=== PATIENT | female | born 1945 | race Caucasian/White ===

== ENCOUNTER → 2019-04-04 | Outpatient (CLI) | payer OTHER ==
[~2019-04-04] MED LIST: ALLEGRA ALLERGY60 MG PO; AMLO5 PO; ASCO500 PO; ASCORBIC ACID SYRUP PO; ASPI325 PO; Aranesp60 MCG/11 INJ; BUME2 PO; CALACE667G PO; CALC.25 PO; CALCA500CH PO; CLON.2 PO; CODACE60 PO; Calcium Acetat667 MG PO; FERR325 PO; FISH1000 PO; FURO80 PO; HYDR1TAB94 PO; HYOS.125 SL; INSLI100I SC; INSULANI; INSULANPEN SC; Isosorbide Mono30 MG PO; LEVFLO250 PO; LEVSOD50 PO; LEVSOD75 PO; LOSA25 PO; LOVA40; LOVA40 PO; Lantus100 UNIT/1 SC; Lipitor20 MG PO; METF500; METO100ER PO; METO50ER PO; MULVITB PO; NOVOLOG FL100 UNIT/1 SC; OXYACE5T PO; PANT40 PO; PARO10; PAXIL40 MG PO; PIOG15; POTA10T PO; POTCHL10ER PO; PSYL5.85P PO; SEVEC800 PO; SODBIC650 PO; Vitamin D2000 UNIT PO
[2019-04-04 14:39] LABS: Albumin, Blood 3.6 g/dL (3.4-5.0); Albumin/Globulin Ratio 1.1 (0.8-1.8); Bilirubin, Direct 0.1 mg/dL (0.0-0.3); Bilirubin, Indirect 0.4 mg/dL (0.1-0.7); Bilirubin, Total 0.5 mg/dL (0.1-1.0); Globulin, Blood 3.2 g/dL (2.2-4.0); Total Protein, Blood 6.8 g/dL (6.4-8.2)
== END | disposition home or self-care (01) ==
LOC: LAB SHORT 13:59 → LAB 13:59
PROVIDERS: Internal Medicine
DX: R10.9 Unspecified abdominal pain (principal)
CPT/HCPCS: 80076

== ENCOUNTER → 2019-04-11 | Outpatient (CLI) | payer OTHER ==
[2019-04-11 13:31] LABS: Albumin, Blood 3.5 g/dL (3.4-5.0); Albumin/Globulin Ratio 1.1 (0.8-1.8); Bilirubin, Direct 0.1 mg/dL (0.0-0.3); Bilirubin, Indirect 0.4 mg/dL (0.1-0.7); Bilirubin, Total 0.5 mg/dL (0.1-1.0); Globulin, Blood 3.3 g/dL (2.2-4.0); Total Protein, Blood 6.8 g/dL (6.4-8.2)
== END | disposition home or self-care (01) ==
LOC: LAB SHORT 12:13 → LAB 12:13
PROVIDERS: Internal Medicine
DX: R10.9 Unspecified abdominal pain (principal)
CPT/HCPCS: 80076

== ENCOUNTER 2019-08-04 15:13 | Observation (INO) | payer OTHER ==
[~2019-08-04] VITALS: Ht 167.6 cm; Wt 70.5 kg
[~2019-08-04 15:13] MED LIST changes: -Calcium Acetat667 MG PO; -METO100ER PO; -MULVITB PO; -NOVOLOG FL100 UNIT/1 SC
[2019-08-04 15:50] LABS: Chloride (POC) 97 mmol/L (98-108); Creatinine (POC) 4.4 mg/dL (0.6-1.0); Glucose (ISTAT POC) 312 mg/dL (70-99); Hemoglobin (POC) 12.2 g/dL (12.0-16.0); Potassium (POC) 3.9 mmol/L (3.5-5.5); Sodium (POC) 136 mmol/L (135-148); Total CO2 (POC) 28 mmol/L (21-32)
[2019-08-04 16:05] LABS: BASOPHILS ABSOLUTE AUTO 0.07 K/mm3 (0.00-0.23); BASOPHILS PERCENT AUTO 1 % (0-2); EOSINOPHILS ABSOLUTE AUTO 0.14 K/mm3 (0.00-0.68); EOSINOPHILS PERCENT AUTO 1 % (0-6); Hematocrit 34.8 % (33.0-51.0); Hemoglobin 10.8 g/dL (11.5-16.0); IMMATURE GRAN ABSOLUTE AUTO 0.04 K/mm3 (0.00-0.10); IMMATURE GRAN PERCENT AUTO 0 % (0-1); LYMPHOCYTES ABSOLUTE AUTO 0.82 K/mm3 (0.84-5.20); LYMPHOCYTES PERCENT AUTO 8 % (21-46); MONOCYTES ABSOLUTE AUTO 0.51 K/mm3 (0.16-1.47); MONOCYTES PERCENT AUTO 5 % (4-13); Mean Corpuscular HGB 27.8 pg (26.0-34.0); Mean Corpuscular Volume 90 fL (80-100); NEUTROPHILS ABSOLUTE AUTO 8.37 K/mm3 (1.96-9.15); NEUTROPHILS PERCENT AUTO 84 % (41-73); Platelet Count 221 K/mm3 (150-400); RDW Coefficient Variation 16.2 % (11.7-14.2); RDW Standard Deviation 51.9 fL (35.1-46.3); Red Blood Cell Count 3.88 M/mm3 (3.80-5.20); White Blood Cell Count 9.95 K/mm3 (4.00-11.30)
[2019-08-04 16:28] LABS: Albumin, Blood 3.9 g/dL (3.4-5.0); Albumin/Globulin Ratio 1.1 (0.8-1.8); Bilirubin, Total 0.7 mg/dL (0.1-1.0); Bun/Creatinine Ratio 8.2 (12.0-20.0); Calcium, Blood 9.6 mg/dL (8.5-10.1); Globulin, Blood 3.6 g/dL (2.2-4.0); Potassium, Blood 3.8 mmol/L (3.5-5.5); Total Protein, Blood 7.5 g/dL (6.4-8.2)
[2019-08-04 16:29] LABS: International Normalized Ratio 1.01; Prothrombin Time Results 10.7 Sec (9.7-11.5)
[2019-08-04 16:46] LABS: Troponin I <0.015 ng/mL (0.000-0.040)
[2019-08-04] MEDS ORDERED: MULVITB PO (17:16)
[2019-08-04] MEDS ORDERED: NOVOLOG FL100 UNIT/1 SC (17:17)
[2019-08-04] MEDS ORDERED: METO100ER PO (17:17)
[2019-08-04] MEDS ORDERED: Calcium Acetat667 MG PO (17:19)
[2019-08-04] MEDS ORDERED: LOSA25 PO (17:20)
[2019-08-05 04:17] LABS: Bun/Creatinine Ratio 8.6 (12.0-20.0); Calcium, Blood 8.9 mg/dL (8.5-10.1); Creatinine, Blood 4.74 mg/dL (0.40-1.00); Potassium, Blood 3.9 mmol/L (3.5-5.5)
--- NOTE | 2019-08-05 07:59 | NUR ---
SHIFT SUMMARY ASSUMED CARE OF PT AT AROUND 2130 HRS PT ARRIVED VIA [facility], REPORT FROM ASSEMBLER GARMENT FORM YUNI. PT TRANSFERRED TO PCU BED BY SLIDE SHEET W/ NO ISSUES. PT OBSERVED TO BE MILDLY LETHERGIC WITH VARIABLE CONFUSED SPEECH, YET ALERT AND AWARE TO SELF, FAMILY, PLACE, AND TIME. PT IS ACCOMPANIED BY SON AND FAMILY FRIEND WHO SHARE POA; BOTH VISITORS AIDED IN RECONCILING PT'S MEDICATIONS AND HISTORY. PT ARRIVED FROM ER W/ BLOOD GLUCOSE OF 318; OBTAINED ONE-TIME ORDER FOR INSULIN 5 UNITS, PT IS OTHERWISE REGULARLY ORDERED CBG CHECKS AND INSULIN COVERAGE BEFORE MEALS. PT AND FAMILY ORIENTED TO ROOM AND UNIT. PT MEDICATED PER MD ORDER AND UNIT PROTOCOL, INCLUDING TYLENOL FOR HEADACHE AT ARRIVAL WHICH RESOLVED TO "NO PAIN" THE NIGHT PROGRESSED. PT WAS MILDLY LETHARGIC T/O SHIFT BUT ROUSABLE TO EVERY INTERVENTION. PT ARRIVED W O2 @ 2L VIA NC, BUT AROUND 2230 WAS NOTED TO HAVE SATURATION AT 100% AT WHICH POINT 02 WAS REMOVED. AROUND MIDNIGHT PT WAS NOTED TO HAVE O2 SATS BELOW 90, AFTER WHICH NASAL CANNULA REPLACED AND RESOLVED TO 95%. AT AROUND 0500 O2 WAS TITRATED TO ZERO W/ RESULTANT SATS ABOVE 93%. GAVE CARE AND REPORT TO ONCOMING SHIFT AT AROUND 0700 WITH PT'S BED LOCKED & LOW, CALL LIGHT W/IN REACH, AND NO PT ISSUES.
--- NOTE | 2019-08-05 08:00 | NUR ---
INITIAL ASSESMENT PT ALERT AND ORIENT TIMES FOUR AND VERY PLEASENT. PT VISION AND HEARING IMPAIRED,BUT WILL TRACK YOUR VOICE AND ORIENTED TO ROOM AND BREAKFAST TRAY. PAIN AT THIS TIME AND FOLLOWS ALL COMMANDS. RA WITH SATS WNL AND NO S/S OF RESP DISTRESS OR SOB WITH CLEAR AND DIM LUNG SOUNDS BILAT AND STRONG COUGH WITH NO SPUTUM PRODUCTION. TOLERATING DIET WITH INSULIN PER SLIDING SCALE AND NO C/O N/V WITH ABD SOFT ROUNDED AND NON TENDER WITH BT T/O SKIN INTACT. WITH AV FISTULA POSITIVE FOR BRUIT AND THRIL AND EXTEM WARM WILL CONT TO MONITOR
--- NOTE | 2019-08-05 12:39 | NUR ---
PT UPDATE PT RETURNED FROM HD AND TOLERATED WELL. WILL GIVE AM BP RX.
--- NOTE | 2019-08-05 18:13 | NUR ---
PT DISCHARGE PT DISCHARGE EDUCATION COMPLETE AND ALL HOME MEDS AND BELONGINGS WITH PATIENT. PT HOME WITH SON
== END 2019-08-05 17:56 | disposition home or self-care (01) ==
LOC: ER 15:13 → MEDS 15:14 → ER 15:14 → PCU 15:14
PROVIDERS: Emergency Medicine; Nurse Practitioner Acute Care; ADMIT Internal Medicine
DX: I16.1 Hypertensive emergency (principal); I67.4 Hypertensive encephalopathy; I13.11 Hypertensive heart and chronic kidney disease without heart failure, with stage 5 chronic kidney disease, or end stage renal disease; E11.22 Type 2 diabetes mellitus with diabetic chronic kidney disease; N18.6 End stage renal disease; D63.1 Anemia in chronic kidney disease; I25.10 Atherosclerotic heart disease of native coronary artery without angina pectoris; R01.1 Cardiac murmur, unspecified; E78.5 Hyperlipidemia, unspecified; E03.9 Hypothyroidism, unspecified; N25.81 Secondary hyperparathyroidism of renal origin; D50.9 Iron deficiency anemia, unspecified; I69.398 Other sequelae of cerebral infarction; H91.8X1 Other specified hearing loss, right ear; E11.319 Type 2 diabetes mellitus with unspecified diabetic retinopathy without macular edema; H54.8 Legal blindness, as defined in USA; Z99.2 Dependence on renal dialysis; Z79.4 Long term (current) use of insulin; Z79.899 Other long term (current) drug therapy; Z91.048 Other nonmedicinal substance allergy status; Z88.2 Allergy status to sulfonamides
CPT/HCPCS: 36415; 70450; 70551; 71046; 80047; 80048; 80053; 82947; 83690; 84484; 85014; 85025; 85610; 93005; 93010; 93306; 93880; 96374; 96375; 96376; 99285-25; A9270; G0257; G0378; J2405; J2765

== ENCOUNTER 2020-09-17 01:11 | Inpatient (IN) | payer OTHER ==
[~2020-09-17] VITALS: Ht 160 cm; Wt 65.1 kg
[~2020-09-17 01:11] MED LIST changes: +CINA30 PO; +CLOP75 PO; +Calcium Acetat667 MG PO; +HYDR10 PO; +ISODIN10 PO; +METO100ER PO; +MULVITB PO; +NOVOLOG FL100 UNIT/1 SC; +TOUJEO SOL300 UNIT/2 SC
[2020-09-17 01:37] LABS: BASOPHILS ABSOLUTE AUTO 0.05 K/mm3 (0.00-0.23); BASOPHILS PERCENT AUTO 0 % (0-2); EOSINOPHILS ABSOLUTE AUTO 0.09 K/mm3 (0.00-0.68); EOSINOPHILS PERCENT AUTO 1 % (0-6); Hematocrit 25.6 % (33.0-51.0); Hemoglobin 7.7 g/dL (11.5-16.0); IMMATURE GRAN ABSOLUTE AUTO 0.08 K/mm3 (0.00-0.10); IMMATURE GRAN PERCENT AUTO 1 % (0-1); LYMPHOCYTES ABSOLUTE AUTO 0.63 K/mm3 (0.84-5.20); LYMPHOCYTES PERCENT AUTO 5 % (21-46); MONOCYTES ABSOLUTE AUTO 0.98 K/mm3 (0.16-1.47); MONOCYTES PERCENT AUTO 8 % (4-13); Mean Corpuscular HGB 28.2 pg (26.0-34.0); Mean Corpuscular HGB Conc 30.1 g/dL (31.5-36.5); Mean Corpuscular Volume 94 fL (80-100); Mean Platelet Volume 10.8 fL (9.1-12.4); NEUTROPHILS ABSOLUTE AUTO 10.66 K/mm3 (1.96-9.15); NEUTROPHILS PERCENT AUTO 86 % (41-73); Platelet Count 202 K/mm3 (150-400); RDW Coefficient Variation 14.8 % (11.7-14.2); RDW Standard Deviation 50.6 fL (35.1-46.3); Red Blood Cell Count 2.73 M/mm3 (3.80-5.20); White Blood Cell Count 12.49 K/mm3 (4.00-11.30)
[2020-09-17 02:16] LABS: Alanine Aminotransfer (ALT/SGP <6 U/L (12-78); Albumin, Blood 3.3 g/dL (3.4-5.0); Albumin/Globulin Ratio 0.7 (0.8-1.8); Alk Phos 72 U/L (50-136); Anion Gap 11 mmol/L (6-16); Aspartate Aminotrans (AST/SGOT 25 U/L (12-37); Bilirubin, Total 0.5 mg/dL (0.1-1.0); Blood Urea Nitrogen 67 mg/dL (8-24); Bun/Creatinine Ratio 9.2 (12.0-20.0); CO2, Blood 25 mmol/L (21-32); Calcium, Blood 9.7 mg/dL (8.5-10.1); Chloride, Blood 98 mmol/L (98-108); Creatinine, Blood 7.25 mg/dL (0.40-1.00); Globulin, Blood 4.5 g/dL (2.2-4.0); Glomerular Filtration Rate 6 (60-); Glucose, Blood 268 mg/dL (70-99); Potassium, Blood 4.1 mmol/L (3.5-5.5); Sodium, Blood 134 mmol/L (136-145); Total Protein, Blood 7.8 g/dL (6.4-8.2)
[2020-09-17 03:15] LABS: International Normalized Ratio 1.07; Prothrombin Time Results 11.4 Sec (9.7-11.5)
--- NOTE | 2020-09-17 05:58 | NUR ---
ADMIT AND END OF SHIFT SUMMARY PT TO UNIT FROM ED. HEPARIN GTT INFUSING. AXO. ON 2LNC, SPO2>96%. LUNGS CLEAR T/O. PT IN SR. VSS. ADMISSION COMPLETE EXCEPT FOR MED LIST, TO BE COMPLETED WITH SOMN WHEN HE ARRIVES. COVID SWAB OBTAINED, AWAITING RESULTS. MEDS GIVEN PER EMAR. PT UPDATED TO ROOM. PT TO HAVE ECHO AND VENOUS DUPLEX TODAY. PT HAS DENIED CP/PRESSURE THIS SHIFT. STATES BEING COMFORTABLE INROOM. WILL CONTINUE TO MONITOR UNTIL SHIFT CHANGE.
[2020-09-17 06:04] LABS: Influenza A, PCR Negative (NEGATIVE); Influenza B, PCR Negative (NEGATIVE); Resp Syncytial Virus, PCR Negative (NEGATIVE); SARS-Cov-2 (COVID-19) PCR, MMC Negative (NEGATIVE)
--- NOTE | 2020-09-17 07:28 | NUR ---
ASSUMED CARE: PT RESTING IN BED, NPO, DENIES CP. AWAITING CARDIOLOGY CONSULT. NOTED THAT NEPHROLOGY WAS ORDERED. PT STATES SHE WOULD PREFER HER OWN RIPRAP MAN WHICH IS DR RAMIREZ. LIST EDITED AND DR RAMIREZ CONTACTED. NO ACUTE NEEDS OR CONCERNS AT THIS TIME.
--- NOTE | 2020-09-17 08:02 | NUR ---
COMPUTER VIDEO GAME DESIGNER WAS AT BEDSIDE PREFORMING VENOUS DUPLEX ON PT'S UPPER EXTREMITY. TECH REPORTS PT IS POSITIVE FOR DVT IN THE JUGULAR, SUBCLAVIAN, AXILLARY, BRACHIAL AND BASILIC. CALL TO DR GONZALEZ TO MAKE HIM AWARE. PT IS ALREADY ON HEPARIN GTT.
--- NOTE | 2020-09-17 09:20 | NUR ---
ECHO AT BEDSIDE AT THIS TIME.
--- NOTE | 2020-09-17 10:00 | NUR ---
PT TAKEN TO DIALYSIS
[2020-09-17 10:32] LABS: BASOPHILS ABSOLUTE AUTO 0.05 K/mm3 (0.00-0.23); BASOPHILS PERCENT AUTO 0 % (0-2); EOSINOPHILS ABSOLUTE AUTO 0.05 K/mm3 (0.00-0.68); EOSINOPHILS PERCENT AUTO 0 % (0-6); Hematocrit 23.1 % (33.0-51.0); IMMATURE GRAN ABSOLUTE AUTO 0.08 K/mm3 (0.00-0.10); IMMATURE GRAN PERCENT AUTO 1 % (0-1); LYMPHOCYTES ABSOLUTE AUTO 0.63 K/mm3 (0.84-5.20); LYMPHOCYTES PERCENT AUTO 6 % (21-46); MONOCYTES ABSOLUTE AUTO 0.75 K/mm3 (0.16-1.47); MONOCYTES PERCENT AUTO 7 % (4-13); Mean Corpuscular HGB 28.7 pg (26.0-34.0); Mean Corpuscular HGB Conc 30.3 g/dL (31.5-36.5); Mean Corpuscular Volume 95 fL (80-100); Mean Platelet Volume 11.1 fL (9.1-12.4); NEUTROPHILS PERCENT AUTO 87 % (41-73); Platelet Count 194 K/mm3 (150-400); RDW Coefficient Variation 14.6 % (11.7-14.2); RDW Standard Deviation 50.3 fL (35.1-46.3); Red Blood Cell Count 2.44 M/mm3 (3.80-5.20); White Blood Cell Count 11.46 K/mm3 (4.00-11.30)
--- NOTE | 2020-09-17 11:30 | NUR ---
DIALYSIS NURSE STATES THAT DR RAMIREZ WISHES FOR UNIT OF BLOOD FOR PT'S ANEMIA. LAB CALLED AFTER TYPE AND SCREEN TO STATE THAT PT HAS SEVERAL ANTIBODIES THAT WOULD REQUIRE SPECIAL UNIT OF BLOOD TO BE SENT FROM [facility]. DIALYSIS NURSE MADE AWARE AND STATES HE WOULD TELL DR RAMIREZ.
[2020-09-17 11:38] LABS: Alanine Aminotransfer (ALT/SGP <6 U/L (12-78); Albumin/Globulin Ratio 0.7 (0.8-1.8); Alk Phos 64 U/L (50-136); Anion Gap 11 mmol/L (6-16); Aspartate Aminotrans (AST/SGOT 24 U/L (12-37); Bilirubin, Total 0.6 mg/dL (0.1-1.0); Blood Urea Nitrogen 70 mg/dL (8-24); Bun/Creatinine Ratio 9.2 (12.0-20.0); CO2, Blood 25 mmol/L (21-32); Calcium, Blood 9.7 mg/dL (8.5-10.1); Chloride, Blood 98 mmol/L (98-108); Creatinine, Blood 7.57 mg/dL (0.40-1.00); Globulin, Blood 4.1 g/dL (2.2-4.0); Glomerular Filtration Rate 6 (60-); Glucose, Blood 193 mg/dL (70-99); Potassium, Blood 4.4 mmol/L (3.5-5.5); Sodium, Blood 134 mmol/L (136-145); Total Protein, Blood 7.1 g/dL (6.4-8.2)
[2020-09-17 11:40] LABS: Troponin I 6.03 ng/mL (0.000-0.040)
--- NOTE | 2020-09-17 11:46 | NUR ---
CALL TO DR TREADWELL FOR PT'S INCREASED TROPONIN. STATES THAT HE IS NOT PLANNING TO CATH PT UNTIL ANEMIA IS RESOLVED. MADE HIM AWARE THAT UNIT OF BLOOD NEEDS TO BE SENT FROM [place]. DR AGREEABLE TO THIS. PT ON HEPARIN. NO FURTHER ORDERS AT THIS TIME.
--- NOTE | 2020-09-17 14:00 | NUR ---
CALL TO DR WYLIE TO UPDATE HER ON PT'S ANEMIA AND PLAN PER CARDIOLOGY. PT RECIEVED DIET ORDER. DENIES CHEST PAIN. HEPARIN IN PLACE AT THIS TIME.
--- NOTE | 2020-09-17 18:47 | NUR ---
SHIFT SUMMARY: PT CURRENTLY ON HEPARIN GTT. TOLD DR WYLIE THAT SHE ONLY WANTS TO MEDICALLY MANAGE HER NSTEMI. AWAITING UNIT OF BLOOD FROM [place] FOR ANEMIA. DIALYSIS TODAY. DENIES CP T/O DAY. SPIN TANK TENDER AT BEDSIDE AT THIS TIME. NO FURTHER NEEDS OR CONCERNS.
[2020-09-17 18:55] LABS: Troponin I 4.05 ng/mL (0.000-0.040)
--- NOTE | 2020-09-18 06:14 | NUR ---
SHIFT SUMMARY PT SLEPT T/O SHIFT. PT ALERT AND ORIENTED X 4. SBA TO BATHROOM. PT CAN TURN SELF IN BED NEEDED. PT HYPERTENSIVE AT TIMES. MEDICATIONS GIVEN PER EMAR. PT RECIEVING 1 UNIT OF PACKED RED BLOOD CELLS. PT TOLERATING WELL. HR STABLE. OXYGEN SATURATION MAINTAINED ABOVE 92% ON 2-4 L OF OXYGEN VIA NC. PERMACATH PLACEMENT WNL, DRESSING C/D/I. PT REPORTS NO CP OR PRESSURE. WILL CONTINUE TO MONITOR UNTIL REPORT GIVEN TO NIKKIE PERRY.
[2020-09-18 08:16] LABS: BASOPHILS ABSOLUTE AUTO 0.05 K/mm3 (0.00-0.23); BASOPHILS PERCENT AUTO 1 % (0-2); EOSINOPHILS PERCENT AUTO 2 % (0-6); Hematocrit 25.7 % (33.0-51.0); Hemoglobin 7.9 g/dL (11.5-16.0); IMMATURE GRAN ABSOLUTE AUTO 0.03 K/mm3 (0.00-0.10); IMMATURE GRAN PERCENT AUTO 0 % (0-1); LYMPHOCYTES ABSOLUTE AUTO 0.62 K/mm3 (0.84-5.20); LYMPHOCYTES PERCENT AUTO 9 % (21-46); MONOCYTES ABSOLUTE AUTO 0.54 K/mm3 (0.16-1.47); MONOCYTES PERCENT AUTO 8 % (4-13); Mean Corpuscular HGB 29.3 pg (26.0-34.0); Mean Corpuscular HGB Conc 30.7 g/dL (31.5-36.5); Mean Corpuscular Volume 95 fL (80-100); Mean Platelet Volume 10.8 fL (9.1-12.4); NEUTROPHILS ABSOLUTE AUTO 5.52 K/mm3 (1.96-9.15); NEUTROPHILS PERCENT AUTO 81 % (41-73); Platelet Count 205 K/mm3 (150-400); RDW Coefficient Variation 14.9 % (11.7-14.2); RDW Standard Deviation 51.9 fL (35.1-46.3); RETICULOCYTE ABSOLUTE 0.0616 M/mm3 (0.0200-0.1100); RETICULOCYTE COUNT PERCENT 2.28 % (0.50-2.50); White Blood Cell Count 6.86 K/mm3 (4.00-11.30)
[2020-09-18 08:41] LABS: Percent Saturation 30.6 % (15.0-50.0)
[2020-09-18 09:15] LABS: Bun/Creatinine Ratio 8.2 (12.0-20.0); Calcium, Blood 9.4 mg/dL (8.5-10.1); Creatinine, Blood 4.77 mg/dL (0.40-1.00); Potassium, Blood 3.9 mmol/L (3.5-5.5)
--- NOTE | 2020-09-18 11:27 | NUR ---
Pt is well know to this video game script writer. Pt sleeping so called her son to review cardilogy progress note. Her son just revieweed her recent fistula treaments and changes to her blood thinner. We reviewed her history and how she is progressing. Review of her advance directive from 2016. Pt has a directive on file for full treatmeant. We reviewed Recussitation efforts, CPR and ventilation and icu care. So is open to discussion and revisiting his mothers code evie. He will pickle water pump operator Advance directive and polst and review with doctor Faisal and his family. Gave him our Office number and advised we can help with planning on out patient basis.
[2020-09-18] MEDS ORDERED: Aspirin EC81 MG PO (11:39)
--- NOTE | 2020-09-18 15:24 | NUR ---
PT DISCHARGED TO HOME TODAY WITH DISCHARGED ORDERS. PT DECLINED ANGIOGRAM TODAY DUE TO RISKS EXPLAINED BY PROVIDERS WHICH PT AGREED ON. DR WYLIE WAS IN THE ROOM PRIOR TO DISCHARGE REGARDING PT'S CLOT ON THE LEFT UPPER ARM AND RISKS OF TAKING BLOOD THINNERS PT HAS HX OF LOWER GI BLEED AND CHRONIC ANEMIA. SON WAS AT BEDSIDE DURING THE DISCUSSION AND UNDERSTANDS THE RISKS AND BENEFITS, PT AND SON DECIDED TO WAIT TIL PT GETS A FF-UP APPT WITH VASCULAR SURGEON IN [place] RECOMMENDED BY DR WYLIE AND NOT START PT ON BLOOD THINNER. DISCHARGE INSTRUCTIONS AND NEW MEDICATIONS DISCUSSED WITH PT. PT DISCHARGED TODAY ALL BELONGINGS SENT WITH PT, PT ACCOMPANIED BY DISCHARGE VOLUNTEER VIA WHEELCHAIR
[2020-09-19] MEDS ORDERED: LOSA50 PO (11:56)
[2020-09-19] MEDS ORDERED: Rena-Vite Tabl0.8 MG PO (11:56)
[2020-09-19] MEDS ORDERED: RENVELA800 MG PO (11:56)
[2020-09-19] MEDS ORDERED: ATORVASTATIN CA20 MG PO (11:57)
[2020-09-19] MEDS ORDERED: PLAVIX75 MG PO (11:57)
== END 2020-09-18 15:21 | disposition home or self-care (01) | DRG 280 ==
LOC: ER 01:11 → PCU 01:12
PROVIDERS: Emergency Medicine; Family Medicine; Internal Medicine; ADMIT Internal Medicine
PROC: 5A09357 Assistance with Respiratory Ventilation, Less than 24 Consecutive Hours, Continuous Positive Airway Pressure (ICD-10-PCS; principal; 2020-09-17)
PROC: 5A1D70Z Performance of Urinary Filtration, Intermittent, Less than 6 Hours Per Day (ICD-10-PCS; 2020-09-17)
DX: I21.4 Non-ST elevation (NSTEMI) myocardial infarction (principal); N18.6 End stage renal disease; J96.01 Acute respiratory failure with hypoxia; I50.31 Acute diastolic (congestive) heart failure; N25.81 Secondary hyperparathyroidism of renal origin; I82.A12 Acute embolism and thrombosis of left axillary vein; I13.0 Hypertensive heart and chronic kidney disease with heart failure and stage 1 through stage 4 chronic kidney disease, or unspecified chronic kidney disease; Z20.828 Contact with and (suspected) exposure to other viral communicable diseases; Z66 Do not resuscitate; Z79.4 Long term (current) use of insulin; E11.40 Type 2 diabetes mellitus with diabetic neuropathy, unspecified; Z86.73 Personal history of transient ischemic attack (TIA), and cerebral infarction without residual deficits; E03.9 Hypothyroidism, unspecified; I16.0 Hypertensive urgency; E11.65 Type 2 diabetes mellitus with hyperglycemia; E11.22 Type 2 diabetes mellitus with diabetic chronic kidney disease; D63.1 Anemia in chronic kidney disease; E11.51 Type 2 diabetes mellitus with diabetic peripheral angiopathy without gangrene; H54.8 Legal blindness, as defined in USA; Z99.2 Dependence on renal dialysis
CPT/HCPCS: 0241U; 36415; 36430; 71045; 80048; 80053; 82550; 82607; 82728; 82746; 82947; 83540; 83550; 83880; 84484; 85025; 85045; 85610; 85730; 86850; 86870; 86900; 86901; 86902; 86922; 93005; 93010; 93306; 93971; 94660; 94761; 94762; 96365; 96375; 99285-25; A9270; A9270-GY; C1751; J0881; J1644; J2405; P9016

== ENCOUNTER 2021-07-03 15:32 | Emergency (ER) | payer OTHER ==
[~2021-07-03] VITALS: Ht 165.1 cm; Wt 68.0 kg
[~2021-07-03 15:32] MED LIST changes: +ATORVASTATIN CA20 MG PO; +Aspirin EC81 MG PO; +LOSA50 PO; +PLAVIX75 MG PO; +RENVELA800 MG PO; +Rena-Vite Tabl0.8 MG PO
[2021-07-03 17:26] LABS: BASOPHILS ABSOLUTE AUTO 0.02 K/mm3 (0.00-0.23); BASOPHILS PERCENT AUTO 0 % (0-2); EOSINOPHILS PERCENT AUTO 2 % (0-6); Hematocrit 24.2 % (33.0-51.0); Hemoglobin 8.4 g/dL (11.5-16.0); IMMATURE GRAN ABSOLUTE AUTO 0.01 K/mm3 (0.00-0.10); IMMATURE GRAN PERCENT AUTO 0 % (0-1); LYMPHOCYTES ABSOLUTE AUTO 0.63 K/mm3 (0.84-5.20); LYMPHOCYTES PERCENT AUTO 13 % (21-46); MONOCYTES ABSOLUTE AUTO 0.55 K/mm3 (0.16-1.47); MONOCYTES PERCENT AUTO 11 % (4-13); Mean Corpuscular HGB 31.2 pg (26.0-34.0); Mean Corpuscular HGB Conc 34.7 g/dL (31.5-36.5); Mean Corpuscular Volume 90 fL (80-100); Mean Platelet Volume 10.1 fL (9.1-12.4); NEUTROPHILS ABSOLUTE AUTO 3.59 K/mm3 (1.96-9.15); NEUTROPHILS PERCENT AUTO 73 % (41-73); Platelet Count 128 K/mm3 (150-400); RDW Coefficient Variation 13.6 % (11.7-14.2); RDW Standard Deviation 44.8 fL (35.1-46.3); Red Blood Cell Count 2.69 M/mm3 (3.80-5.20)
[2021-07-03 17:49] LABS: Prothrombin Time Results 10.8 Sec (9.7-11.5)
[2021-07-03 17:52] LABS: Albumin, Blood 3.7 g/dL (3.4-5.0); Albumin/Globulin Ratio 1.1 (0.8-1.8); Bilirubin, Total 0.7 mg/dL (0.1-1.0); Bun/Creatinine Ratio 9.8 (12.0-20.0); Calcium, Blood 8.5 mg/dL (8.5-10.1); Creatinine, Blood 6.1 mg/dL (0.40-1.00); Globulin, Blood 3.5 g/dL (2.2-4.0); Potassium, Blood 3.8 mmol/L (3.5-5.5); Total Protein, Blood 7.2 g/dL (6.4-8.2)
[2021-07-03 17:58] LABS: Source, Urine Clean Catch
[2021-07-03 18:01] LABS: Free Thyroxine 1.29 ng/dL (0.70-1.60)
[2021-07-03 18:01] LABS: Appearance, Urine Clear (Clear); Bilirubin, Urine Neg (Neg); Blood, Urine 2+ (Neg); Color, Urine Yellow (P-Yellow); Glucose Qualitative, Urine 3+ (Neg); Ketones, Urine Neg (Neg); Leukocyte Esterase, Urine Neg (Neg); Nitrite, Urine Neg (Neg); Protein, Urine 4+ (Neg); Urobilinogen, Urine NORM (Normal)
[2021-07-03 18:03] LABS: Thyroid Stimulating Hormone 3.6 uIU/mL (0.360-4.800); Triiodothyronine, Free 1.84 pg/mL (2.18-3.98)
[2021-07-03 18:38] LABS: Bacteria Few /hpf; Squamous Epithelial Cells Few /hpf (Few)
[2021-07-03 18:48] LABS: U Amphetamine Screen Not Detected; U Barbituate Screen Not Detected; U Benzodiazapine Screen Not Detected; U Buprenorphine Screen Not Detected; U Cannabinoids Screen Not Detected; U Cocaine Screen Not Detected; U Methadone Screen Not Detected; U Methamphetamine Screen Not Detected; U Opiates Screen Not Detected; U Oxycodone Screen Not Detected; U Phencyclidine Screen Not Detected; U Propoxyphene Screen Not Detected
[2021-07-03] MEDS ORDERED: AMLO5 PO (18:52)
== END 2021-07-03 19:21 | disposition home or self-care (01) ==
LOC: ER 15:32
PROVIDERS: Physician Assistant
DX: R41.0 Disorientation, unspecified (principal); E87.8 Other disorders of electrolyte and fluid balance, not elsewhere classified; T46.5X5A Adverse effect of other antihypertensive drugs, initial encounter; I12.0 Hypertensive chronic kidney disease with stage 5 chronic kidney disease or end stage renal disease; E11.22 Type 2 diabetes mellitus with diabetic chronic kidney disease; N18.5 Chronic kidney disease, stage 5; D63.1 Anemia in chronic kidney disease; E11.40 Type 2 diabetes mellitus with diabetic neuropathy, unspecified; E03.9 Hypothyroidism, unspecified; E78.5 Hyperlipidemia, unspecified; Z88.2 Allergy status to sulfonamides; Z91.048 Other nonmedicinal substance allergy status; Z79.899 Other long term (current) drug therapy; Z79.4 Long term (current) use of insulin; Z79.82 Long term (current) use of aspirin; Z79.02 Long term (current) use of antithrombotics/antiplatelets; Z86.73 Personal history of transient ischemic attack (TIA), and cerebral infarction without residual deficits; Z99.2 Dependence on renal dialysis
CPT/HCPCS: 36415; 70450; 71045; 80053; 81001; 82947; 83735; 84439; 84443; 84481; 85025; 85610; 85730; 93005; 93010; 99285-25; J7030

== ENCOUNTER 2021-10-16 09:29 | Observation (INO) | payer OTHER ==
[~2021-10-16] VITALS: Ht 160 cm; Wt 58.4 kg
[~2021-10-16 09:29] MED LIST changes: -NOVOLOG FL100 UNIT/1 SC; +NOVOLOG FL100 UNIT/3 SC; +Vitamin D1000 UNI1 PO; -Vitamin D2000 UNIT PO
[2021-10-16] MEDS ORDERED: HYDRA25 PO (11:14)
[2021-10-16 11:23] LABS: BASOPHILS ABSOLUTE AUTO 0.05 K/mm3 (0.00-0.23); BASOPHILS PERCENT AUTO 1 % (0-2); EOSINOPHILS ABSOLUTE AUTO 0.19 K/mm3 (0.00-0.68); EOSINOPHILS PERCENT AUTO 2 % (0-6); Hematocrit 29.7 % (33.0-51.0); Hemoglobin 9.5 g/dL (11.5-16.0); IMMATURE GRAN ABSOLUTE AUTO 0.04 K/mm3 (0.00-0.10); IMMATURE GRAN PERCENT AUTO 1 % (0-1); LYMPHOCYTES ABSOLUTE AUTO 0.55 K/mm3 (0.84-5.20); LYMPHOCYTES PERCENT AUTO 7 % (21-46); MONOCYTES ABSOLUTE AUTO 0.48 K/mm3 (0.16-1.47); MONOCYTES PERCENT AUTO 6 % (4-13); Mean Corpuscular HGB 29.9 pg (26.0-34.0); Mean Corpuscular Volume 93 fL (80-100); Mean Platelet Volume 10.4 fL (9.1-12.4); NEUTROPHILS ABSOLUTE AUTO 6.81 K/mm3 (1.96-9.15); NEUTROPHILS PERCENT AUTO 84 % (41-73); Platelet Count 184 K/mm3 (150-400); RDW Coefficient Variation 14.7 % (11.7-14.2); RDW Standard Deviation 50.4 fL (35.1-46.3); Red Blood Cell Count 3.18 M/mm3 (3.80-5.20); White Blood Cell Count 8.12 K/mm3 (4.00-11.30)
[2021-10-16 11:30] LABS: Base Excess Venous -5.5 mmol/L; Bicarbonate Venous 20.3 mmol/L (24.0-30.0); PCO2 Venous 37.1 mmHg (38-42); PO2 Venous 122 mmHg (38-42); pH Blood Venous 7.34 (7.34-7.37)
[2021-10-16 12:22] LABS: Albumin, Blood 3.6 g/dL (3.4-5.0); Albumin/Globulin Ratio 0.9 (0.8-1.8); Bilirubin, Direct 0.1 mg/dL (0.0-0.3); Bilirubin, Indirect 0.5 mg/dL (0.1-0.7); Bilirubin, Total 0.6 mg/dL (0.1-1.0); Calcium, Blood 9.7 mg/dL (8.5-10.1); Globulin, Blood 4.2 g/dL (2.2-4.0); Magnesium, Blood 2.2 mg/dL (1.6-2.4); Total Protein, Blood 7.8 g/dL (6.4-8.2); Troponin I 0.428 ng/mL (0.000-0.040)
[2021-10-16 12:36] LABS: Influenza A, PCR NEGATIVE (NEGATIVE); Influenza B, PCR NEGATIVE (NEGATIVE); Resp Syncytial Virus, PCR NEGATIVE (NEGATIVE); SARS-Cov-2 (COVID-19) PCR, MMC NEGATIVE (NEGATIVE)
[2021-10-16 12:39] LABS: Bun/Creatinine Ratio 9.4 (12.0-20.0); Creatinine, Blood 11.6 mg/dL (0.40-1.00)
--- NOTE | 2021-10-16 17:23 | NUR ---
PT ARRIVES ON UNIT DIRECTLY FROM [facility] AT 1715. A/O VITALS TAKEN. BP 200/78. NO PAIN REPORTED. NO SOB. WILL GIVE MED AND MONITOR
--- NOTE | 2021-10-17 04:34 | NUR ---
BOTTOM WORKER SUMMARY PATIENT HAD A FAIR SHIFT. HER BP WAS ELEVATED AND PRN HYDRALAZINE WAS ADMINISTERED, NO COMPLAINTS LODGED. WILL CONTINUE TO MONITOR HER.
[2021-10-17 05:35] LABS: Hematocrit 27.2 % (33.0-51.0); Hemoglobin 8.6 g/dL (11.5-16.0)
[2021-10-17 07:16] LABS: Magnesium, Blood 2.1 mg/dL (1.6-2.4)
[2021-10-17 07:20] LABS: Albumin, Blood 3.2 g/dL (3.4-5.0); Anion Gap 13 mmol/L (6-16); Blood Urea Nitrogen 68 mg/dL (8-24); Bun/Creatinine Ratio 8.2 (12.0-20.0); CO2, Blood 25 mmol/L (21-32); Calcium, Blood 9.3 mg/dL (8.5-10.1); Chloride, Blood 99 mmol/L (98-108); Creatinine, Blood 8.31 mg/dL (0.40-1.00); Glomerular Filtration Rate 5 (60-); Glucose, Blood 56 mg/dL (70-99); Phosphorus, Blood 7.2 mg/dL (2.5-4.9); Potassium, Blood 4.8 mmol/L (3.5-5.5); Sodium, Blood 137 mmol/L (136-145)
--- NOTE | 2021-10-17 12:41 | NUR ---
Per chart review with Dr. Acuña, patient is appropriate for discharge today. I went and visited the patient while she was receiving HD at [facility]. She was laying down, calm, and pleasant. The patient states she lives at home with her son, Chadwick, who helps with her ADLs, driving, medication management, and transportation. The patient states she also has several family members in the area. She uses a cane for support. I called Chadwick to confirm that the patient is discharging and that he would be helping with transportation home. He confirmed. I also scheduled a hospital tele-health appointment with him for next Thursday10/22/2020 at 4:20pm with Dr. Smith. Patient's son agreed to this.
--- NOTE | 2021-10-17 13:01 | NUR ---
CALL PLACED TO DR ANDINO TO COMFIRM PT DISCHARGE ORDER CONSIDERING HER TROP LEVEL OF 1.050 DR ANDINO STATES THAT HE SPOKE WITH PT, THIS PATIENT REFUSED TO BE SEEN BY A AUDIO INSTALLER. DR ANDINO SAID IT IS OKAY FOR THIS PATIENT TO GO HOME
[2021-10-17] MEDS ORDERED: ONDA4ODT MM (14:41)
--- NOTE | 2021-10-17 14:41 | NUR ---
PT WAS DISCHARGED FROM THE SYSTEM, AFTERNOON MED COULD NOT BE GIVEN. AWAITING ON DISCHARGE PAPER TO PROCEED WITH DISCHARGE FOR THIS PATIENT
[2021-10-17] MEDS ORDERED: ASPI81CH PO (14:42)
[2021-10-17] MEDS ORDERED: CLOP75 PO (14:42)
--- NOTE | 2021-10-17 16:15 | NUR ---
SON AT BEDSIDE TO HYDROTHERAPIST PATIENT. PT A/O X4. PATIENT DENIES PAIN/DISCOMFORT NO SOB/CHEST PAIN. NO ACUTE CHANGES. PT IS DISCHARGED. IV REMOVED
[2022-03-03] MEDS ORDERED: HYDRA50 PO (04:39)
[2022-03-03] MEDS ORDERED: Rena-Vite Tabl0.8 MG PO (04:43)
[2022-03-06] MEDS ORDERED: BENZ100A PO (13:47)
[2022-03-06] MEDS ORDERED: INSULANPEN SC (13:49)
[2022-03-06] MEDS ORDERED: METO25ER PO (13:51)
[2022-03-06] MEDS ORDERED: Imdur-ER60 MG PO (15:49)
== END 2021-10-17 16:18 | disposition home or self-care (01) ==
LOC: ER 09:29 → ERHOLD 09:30 → MEDS 09:30
PROVIDERS: Internal Medicine Nephrology; Student in an Organized Health Care Education/Training Program; ADMIT Family Medicine
DX: E87.5 Hyperkalemia (principal); I12.0 Hypertensive chronic kidney disease with stage 5 chronic kidney disease or end stage renal disease; E11.22 Type 2 diabetes mellitus with diabetic chronic kidney disease; N18.6 End stage renal disease; E87.1 Hypo-osmolality and hyponatremia; Z20.822 Contact with and (suspected) exposure to COVID-19; R60.0 Localized edema; H54.8 Legal blindness, as defined in USA; I25.10 Atherosclerotic heart disease of native coronary artery without angina pectoris; E11.319 Type 2 diabetes mellitus with unspecified diabetic retinopathy without macular edema; E11.40 Type 2 diabetes mellitus with diabetic neuropathy, unspecified; E03.9 Hypothyroidism, unspecified; E78.5 Hyperlipidemia, unspecified; N25.81 Secondary hyperparathyroidism of renal origin; D64.9 Anemia, unspecified; F32.A Depression, unspecified; Z99.2 Dependence on renal dialysis; Z79.4 Long term (current) use of insulin; Z79.82 Long term (current) use of aspirin
CPT/HCPCS: 0241U; 36415; 71045; 80048; 80069; 80076; 82803; 82947; 83735; 83880; 84484; 85014; 85018; 85025; 93005; 93010; 96372; 96375; 96376; 97116; 97162; 99285-25; A9270; G0257; G0378; J0360; J0881; J1644; J1815

== ENCOUNTER 2022-01-20 11:48 | Inpatient (IN) | payer OTHER ==
[~2022-01-20] VITALS: Ht 157.5 cm; Wt 57.0 kg
[~2022-01-20 11:48] MED LIST changes: +ASPI81CH PO; +HYDRA25 PO; +ONDA4ODT MM
[2022-01-20 14:27] LABS: BASOPHILS ABSOLUTE AUTO 0.05 K/mm3 (0.00-0.23); BASOPHILS PERCENT AUTO 1 % (0-2); EOSINOPHILS PERCENT AUTO 3 % (0-6); Hematocrit 29.2 % (33.0-51.0); Hemoglobin 9.4 g/dL (11.5-16.0); IMMATURE GRAN ABSOLUTE AUTO 0.02 K/mm3 (0.00-0.10); IMMATURE GRAN PERCENT AUTO 0 % (0-1); LYMPHOCYTES ABSOLUTE AUTO 0.53 K/mm3 (0.84-5.20); LYMPHOCYTES PERCENT AUTO 7 % (21-46); MONOCYTES ABSOLUTE AUTO 0.61 K/mm3 (0.16-1.47); MONOCYTES PERCENT AUTO 8 % (4-13); Mean Corpuscular HGB 29.4 pg (26.0-34.0); Mean Corpuscular HGB Conc 32.2 g/dL (31.5-36.5); Mean Corpuscular Volume 91 fL (80-100); Mean Platelet Volume 10.6 fL (9.1-12.4); NEUTROPHILS ABSOLUTE AUTO 6.02 K/mm3 (1.96-9.15); NEUTROPHILS PERCENT AUTO 81 % (41-73); Platelet Count 168 K/mm3 (150-400); RDW Coefficient Variation 15.4 % (11.7-14.2); White Blood Cell Count 7.43 K/mm3 (4.00-11.30)
[2022-01-20 14:52] LABS: Albumin, Blood 3.8 g/dL (3.4-5.0); Bilirubin, Total 0.6 mg/dL (0.1-1.0); Bun/Creatinine Ratio 9.6 (12.0-20.0); Calcium, Blood 10.2 mg/dL (8.5-10.1); Creatinine, Blood 9.46 mg/dL (0.40-1.00); Globulin, Blood 3.7 g/dL (2.2-4.0); Potassium, Blood 6.1 mmol/L (3.5-5.5); Total Protein, Blood 7.5 g/dL (6.4-8.2)
--- NOTE | 2022-01-20 18:57 | NUR ---
PT CAME TO ROOM FROM ED AT 1730 AND TRANSFERRED IN TO BED BY SLIDE SHEET. SON HERE WITH PT WELL DAUGHTER IN LAW. DIDN'T WANT TO CHANGE CLOTHES SITING BEING COLD AND HUNGRY. SKIN THAT WAS ABLE TO BE VIEWED BACK, UNDER BREASTS AND AXILLAE WITH SKIN INTACT. EATING SUPPER AT THIS TIME WITH ASSIST. REPORTS BEING ESSENTIALLY BLIND AND NOT ABLE TO SEE LIGHT OR COLORS. SLIGHTLY HARD OF HEARING. DR. AQUINO IN TO SEE PT. DIALYSIS STARTED ALMOST SOON SHE ARRIVED TO ROOM.
--- NOTE | 2022-01-21 00:14 | NUR ---
PT ACCIDENTALLY PULLED HER IV OUT. LINENS CHANGED. MARYLIN HADDAD OR MARYLIN KEARNS TO ATTEMPT IV START. PT HAD A 22 G IV IN HER RIGHT THUMB.
--- NOTE | 2022-01-21 01:53 | NUR ---
PEG APPLIED TO NEW IV TO RIGHT FA - REMINDED PT ABOUT IV TO RFA. SHE REPORTS SHE DIDN'T PULL OUT THE R THUMB IV.
--- NOTE | 2022-01-21 03:45 | NUR ---
LM FOR DR. AMEZCUA - UPDATED ON BP 218/81, P 63 - REQUESTING PRN BP MEDICATION - AWAITING RETURN PHONE CALL.
--- NOTE | 2022-01-21 04:20 | NUR ---
FLUSHED NEW IV TO R FA - OMI US WAS USED BY MARYLIN KEARNS. CALLED OTHER UNITS FOR ASSISTANCE - MARYLIN COLIN PCU WILL BE UP SHORTLY FOR NEW IV START.
--- NOTE | 2022-01-21 04:32 | NUR ---
SHIFT SUMMARY - NO ACUTE CHANGES SINCE ADMIT LAST NOC. PT HAS BEEN RESPONDING APPROPRIATELY TO QUESTIONS ASKED, AND FOLLOWS INSTRUCTIONS APPROPRIATELY. PT HAD DIALYSIS LAST NOC, AND REPORT IS PT WILL HAVE DIALYSIS AGAIN THIS AM. WILL GIVE HYDRALAZINE IV ONCE NEW IV IS IN PLACE. PT IS BLIND. CALL HENNESSY WITH TELE PAD ON NURSE CALL BUTTON IN PLACE - INSTRUCTIONS GIVEN ON USE. FLUIDS AT BEDSIDE. BED IN LOW POSITION. PERMACATH SITE TO RIGHT CHEST WALL IN PLACE - DRESSING CD&I. WILL CONTINUE TO MONITOR UNTIL AM SHIFT CHANGE.
--- NOTE | 2022-01-21 05:04 | NUR ---
LM WITH DR. AMEZCUA - PT'S NEW IV INFILTRATED. MARYLIN COLIN PCU ATTEMPTED IV - NO SUCCESS, AND THEN PT DECLINED AN IV AND AM LAB DRAWS - AWAITING DR. AMEZCUA RETURN PHONE CALL. WILL SEE IF I CAN GIVE AM PO MEDS APRESOLINE, NORVASC, AND METOPROLOL EARLY.
--- NOTE | 2022-01-21 05:23 | NUR ---
I SPOKE WITH DR. AMEZCUA - HE AUTHORIZED NORVASC, HYDRALAZINE, AND METOPROLOL NOW, AND REVIEWED PT IS ON TELE, AND IV INFILTRATED. ASKED DR. AMEZCUA FOR ORDER NOT TO HAVE AN IV - ORDER RECEIVED PT IS REFUSING AN IV AND LAB DRAWS. REVIEWED WITH DR. AMEZCUA PT REFUSING LAB DRAW - WILL REPORT OFF TO AM SHIFT, SO DIALYSIS NURSE CAN DRAW LABS WITH DIALYSIS TODAY.
[2022-01-21 08:39] LABS: BASOPHILS ABSOLUTE AUTO 0.06 K/mm3 (0.00-0.23); BASOPHILS PERCENT AUTO 1 % (0-2); EOSINOPHILS ABSOLUTE AUTO 0.19 K/mm3 (0.00-0.68); EOSINOPHILS PERCENT AUTO 4 % (0-6); Hematocrit 29.4 % (33.0-51.0); Hemoglobin 9.9 g/dL (11.5-16.0); IMMATURE GRAN ABSOLUTE AUTO 0.03 K/mm3 (0.00-0.10); IMMATURE GRAN PERCENT AUTO 1 % (0-1); LYMPHOCYTES ABSOLUTE AUTO 0.56 K/mm3 (0.84-5.20); LYMPHOCYTES PERCENT AUTO 10 % (21-46); MONOCYTES ABSOLUTE AUTO 0.62 K/mm3 (0.16-1.47); MONOCYTES PERCENT AUTO 12 % (4-13); Mean Corpuscular HGB 29.6 pg (26.0-34.0); Mean Corpuscular HGB Conc 33.7 g/dL (31.5-36.5); Mean Corpuscular Volume 88 fL (80-100); Mean Platelet Volume 11.4 fL (9.1-12.4); NEUTROPHILS ABSOLUTE AUTO 3.94 K/mm3 (1.96-9.15); NEUTROPHILS PERCENT AUTO 73 % (41-73); Platelet Count 116 K/mm3 (150-400); RDW Standard Deviation 48.1 fL (35.1-46.3); Red Blood Cell Count 3.35 M/mm3 (3.80-5.20)
[2022-01-21 09:06] LABS: Albumin, Blood 3.6 g/dL (3.4-5.0); Bilirubin, Total 0.6 mg/dL (0.1-1.0); Bun/Creatinine Ratio 8.2 (12.0-20.0); Calcium, Blood 9.5 mg/dL (8.5-10.1); Creatinine, Blood 5.62 mg/dL (0.40-1.00); Globulin, Blood 3.5 g/dL (2.2-4.0); Magnesium, Blood 2.3 mg/dL (1.6-2.4); Phosphorus, Blood 5.1 mg/dL (2.5-4.9); Potassium, Blood 4.5 mmol/L (3.5-5.5); Total Protein, Blood 7.1 g/dL (6.4-8.2)
--- NOTE | 2022-01-21 18:47 | NUR ---
SHIFT SUMMARY PT UP TO CHAIR WITH O.T. THIS MORNING. DIALYSIS IN TO ROOM AT 0900 AND ASSISTED HER BACK TO BED AND THEN BEGAN HD. SEVERAL EVENTS OCCURED WITH HD TODAY WHICH CAUSED IT TO LAST OVER A PERIOD OF 6 HOURS. SON IN ROOM FOR PERIOD OF TIME. PT WAS QUITE RESTLESS AND CONFUSED DURING PART OF HD. NOTIFIED OF BEHAVIORS DURING HD AND CONTINUED BP TODAY. PT HAS BEEN SLEEPING MOST OF TIME SINCE HD. DID EAT APPROX 50% OF SUPPER WITH HER SON ASSISTING HER. HE REPORTS SHE HAS NEEDED HELP EATING FOR LAST WEEK OR SO. STILL DISORIENTED BUT IMPROVED FROM WHEN SHE WAS RECEIVING HD.
--- NOTE | 2022-01-22 02:35 | NUR ---
01/21/222057 PT LYING IN BED, DENIES ANY DISCOMFORT AT THIS TIME. TELE NSR AT 66 PER TELE STRIP. NO OTHER APPARENT SIGNS OF DISTRESS. CALL LIGHT IS IN REACH.
--- NOTE | 2022-01-22 02:36 | NUR ---
0000 PT LYING IN BED, EYES CLOSED, APPEARS TO BE RESTING.BREATHING IS EVEN, UNLABORED. NO APPARENT SIGNS OF DISTRESS. CALL LIGHT IS IN REACH.
--- NOTE | 2022-01-22 04:30 | NUR ---
0200 PT LYING IN BED, EYES CLOSED, APPEARS TO BE RESTING. BREATHING IS EVEN, UNLABORED. NO APPARENT SIGNS OF DISTRESS. CALL LIGHT IS IN REACH.
--- NOTE | 2022-01-22 04:31 | NUR ---
PT IS AAO X 2, PT DENIED ANY DISCOMFORT FOR THIS SHIFT. TELE NSR AT 66.
--- NOTE | 2022-01-22 04:31 | NUR ---
PT LYING IN BED, EYES CLOSED, APPEARS TO BE RESTING. BREATHING IS EVEN, UNLABORED. NO APPARENT SIGNS OF DISTRESS. CALL LIGHT IS IN REACH.
--- NOTE | 2022-01-22 06:19 | NUR ---
PT LYING IN BED, EYES CLOSED, APPEARS TO BE RESTING. BREATHING IS EVEN, UNLABORED. NO APPARENT SIGNS OF DISTRESS. CALL LIGHT IS IN REACH. NO OTHER CHANGES THIS SHIFT.
[2022-01-22 06:25] LABS: BASOPHILS ABSOLUTE AUTO 0.06 K/mm3 (0.00-0.23); BASOPHILS PERCENT AUTO 1 % (0-2); EOSINOPHILS ABSOLUTE AUTO 0.09 K/mm3 (0.00-0.68); EOSINOPHILS PERCENT AUTO 2 % (0-6); Hematocrit 25.3 % (33.0-51.0); Hemoglobin 8.1 g/dL (11.5-16.0); IMMATURE GRAN ABSOLUTE AUTO 0.01 K/mm3 (0.00-0.10); IMMATURE GRAN PERCENT AUTO 0 % (0-1); LYMPHOCYTES ABSOLUTE AUTO 0.74 K/mm3 (0.84-5.20); LYMPHOCYTES PERCENT AUTO 17 % (21-46); MONOCYTES ABSOLUTE AUTO 0.53 K/mm3 (0.16-1.47); MONOCYTES PERCENT AUTO 12 % (4-13); Mean Corpuscular HGB 29.2 pg (26.0-34.0); Mean Corpuscular Volume 91 fL (80-100); Mean Platelet Volume 10.9 fL (9.1-12.4); NEUTROPHILS ABSOLUTE AUTO 2.94 K/mm3 (1.96-9.15); NEUTROPHILS PERCENT AUTO 67 % (41-73); Platelet Count 150 K/mm3 (150-400); RDW Coefficient Variation 14.7 % (11.7-14.2); RDW Standard Deviation 49.8 fL (35.1-46.3); Red Blood Cell Count 2.77 M/mm3 (3.80-5.20); White Blood Cell Count 4.37 K/mm3 (4.00-11.30)
[2022-01-22 06:39] LABS: Albumin, Blood 3.4 g/dL (3.4-5.0); Bilirubin, Total 0.4 mg/dL (0.1-1.0); Bun/Creatinine Ratio 6.8 (12.0-20.0); Calcium, Blood 9.6 mg/dL (8.5-10.1); Creatinine, Blood 3.66 mg/dL (0.40-1.00); Globulin, Blood 3.4 g/dL (2.2-4.0); Potassium, Blood 3.8 mmol/L (3.5-5.5); Total Protein, Blood 6.8 g/dL (6.4-8.2)
[2022-01-22 09:19] LABS: Albumin, Blood 3.5 g/dL (3.4-5.0); Anion Gap 11 mmol/L (6-16); Blood Urea Nitrogen 26 mg/dL (8-24); Bun/Creatinine Ratio 7.1 (12.0-20.0); CO2, Blood 32 mmol/L (21-32); Calcium, Blood 9.4 mg/dL (8.5-10.1); Chloride, Blood 95 mmol/L (98-108); Creatinine, Blood 3.64 mg/dL (0.40-1.00); Glomerular Filtration Rate 12 (60-); Glucose, Blood 171 mg/dL (70-99); Phosphorus, Blood 4.3 mg/dL (2.5-4.9); Potassium, Blood 3.8 mmol/L (3.5-5.5); Sodium, Blood 138 mmol/L (136-145)
--- NOTE | 2022-01-22 09:47 | NUR ---
PT TO DIALYSIS THIS AM. PT IS VERY TIRED AND ONLY AWAKENS BRIEFLY WHEN AROUSED. PT UNABLE TO STAY AWAKE LONG ENOUGH TO TAKE MORNING PO MEDS. WILL ATTEMPT AGAIN LATER. PT REFUSED BREAKFAST THIS AM. MORNING INSULIN HELD DUE TO HER NOT EATING, DECISION DISCUSSED WITH VISUAL DESIGNER.
--- NOTE | 2022-01-22 16:34 | NUR ---
SHIFT SUMMARY PT VERY FATIGUED THIS SHIFT. PT VERY HARD TO WAKE UP THIS AM AND REFUSED BREAKFAST AND LUNCH. WENT TO DIALYSIS AND SLEPT THROUGH DIALYSIS WELL. PT WORKED WITH PHYSICAL THERAPY THIS AFTERNOON BUT WAS TOO TIRED TO WORK WITH OCCUPATIONAL THERAPY. POSSIBLE DC HOME WITH HOME HEALTH TOMORROW.
[2022-01-23 05:37] LABS: BASOPHILS ABSOLUTE AUTO 0.03 K/mm3 (0.00-0.23); BASOPHILS PERCENT AUTO 1 % (0-2); EOSINOPHILS ABSOLUTE AUTO 0.06 K/mm3 (0.00-0.68); EOSINOPHILS PERCENT AUTO 2 % (0-6); Hematocrit 22.1 % (33.0-51.0); IMMATURE GRAN PERCENT AUTO 0 % (0-1); LYMPHOCYTES PERCENT AUTO 27 % (21-46); MONOCYTES ABSOLUTE AUTO 0.33 K/mm3 (0.16-1.47); MONOCYTES PERCENT AUTO 13 % (4-13); Mean Corpuscular HGB 29.3 pg (26.0-34.0); Mean Corpuscular HGB Conc 31.7 g/dL (31.5-36.5); Mean Corpuscular Volume 93 fL (80-100); Mean Platelet Volume 10.5 fL (9.1-12.4); NEUTROPHILS ABSOLUTE AUTO 1.46 K/mm3 (1.96-9.15); NEUTROPHILS PERCENT AUTO 57 % (41-73); Platelet Count 112 K/mm3 (150-400); RDW Coefficient Variation 14.8 % (11.7-14.2); Red Blood Cell Count 2.39 M/mm3 (3.80-5.20); White Blood Cell Count 2.58 K/mm3 (4.00-11.30)
--- NOTE | 2022-01-23 06:26 | NUR ---
Patient is alert and oriented x3 forgetful with situation. Patient is blind. No complains of pain. BP elevated managed with PO BP medications. Snacks provided. Patient rested most of the night, but was more awake than she was during the day. Call light within reach. Anuric.
--- NOTE | 2022-01-23 08:00 | NUR ---
pt laying in bed awake, a/ox3, pleasant and cooperative with care, follows commands well, is blind, and [place], thought she would be going home today, lungs are dim t/o, on r/a, resp even and unlabored, no cough noted, swallows po meds without diff, but does need assist to eat, hrr, murmur noted, no edema noted, ppp+1, cap refill <3sec, vs stable, afebrile, btx4, abd flat soft nontender, doesn't make urine, skin c/w/d, maew, ambulates with a cane at baseline, kayleen, call light in reach.
--- NOTE | 2022-01-23 11:19 | NUR ---
Received referral from [facility] Photoengraving Etcher (Iza Alford) on 01/20/2022. Patient was admitted to [facility] on 01/20/2022 due to end stage kidney disease. Patient is to discharge with orders for home health and elected [facility]. Met with patient to further discuss the above. Patient declines home health services at this time stating "I have to go up to my mom's place, so I guess that shoots that". Informed patient that if they changed their mind they could always request services through their primary care provider. Provided patient with my business card and home health pamphlet. Communicated the above to [facility] [employer] (Iza Alford). No further interventions required. Lida Best Referral Liaison
--- NOTE | 2022-01-23 18:36 | NUR ---
pt has had an uneventful day, needs help eating, has been repositioned, through out the day, no acute changes this shift, call light in reach.
[2022-01-24 05:24] LABS: Hematocrit 19.8 % (33.0-51.0); Hemoglobin 6.4 g/dL (11.5-16.0); Mean Corpuscular HGB 29.4 pg (26.0-34.0); Mean Corpuscular HGB Conc 32.3 g/dL (31.5-36.5); Mean Corpuscular Volume 91 fL (80-100); Mean Platelet Volume 11.4 fL (9.1-12.4); Platelet Count 103 K/mm3 (150-400); RDW Coefficient Variation 14.8 % (11.7-14.2); RDW Standard Deviation 49.1 fL (35.1-46.3); Red Blood Cell Count 2.18 M/mm3 (3.80-5.20); White Blood Cell Count 3.85 K/mm3 (4.00-11.30)
--- NOTE | 2022-01-24 06:14 | NUR ---
Patient is alert and oriented x3, forgetful. Patient is blind. Awaiting blood transfusion due to antibodies. HGB today is 6.4 Charge Nurse Kathrine aware. No active bleeding noted. Hemodialysis for today. Snacks offered. No complains of pain. No SOB. Call light within reach.
[2022-01-24 06:41] LABS: BAND PERCENT MAN 1 % (0-8); BASOPHILS ABSOLUTE MAN 0.07 K/mm3 (0.00-0.23); BASOPHILS PERCENT MAN 2 % (0-2); EOSINOPHILS ABSOLUTE MAN 0.07 K/mm3 (0.00-0.68); EOSINOPHILS PERCENT MAN 2 % (0-6); LYMPHOCYTES ABSOLUTE MAN 0.42 K/mm3 (0.84-5.20); LYMPHOCYTES PERCENT MAN 11 % (21-46); MONOCYTES PERCENT MAN 8 % (4-13); NEUTROPHILS ABSOLUTE MAN 2.96 K/mm3 (1.96-9.15); SEG NEUTROPHILS PERCENT MAN 76 % (41-73); TOTAL CELLS COUNTED 100
[2022-01-24 07:13] LABS: Albumin, Blood 3.1 g/dL (3.4-5.0); Albumin/Globulin Ratio 1.1 (0.8-1.8); Bilirubin, Total 0.3 mg/dL (0.1-1.0); Bun/Creatinine Ratio 8.1 (12.0-20.0); Calcium, Blood 9.2 mg/dL (8.5-10.1); Creatinine, Blood 5.08 mg/dL (0.40-1.00); Globulin, Blood 2.7 g/dL (2.2-4.0); Potassium, Blood 4.8 mmol/L (3.5-5.5); Total Protein, Blood 5.8 g/dL (6.4-8.2)
--- NOTE | 2022-01-24 08:15 | NUR ---
PT COOPERATIVE AND PLESEANT. A/O X3. ORIENTED TO PERSON, PLACE AND SITUATION. DENIES PAIN AT THIS TIME. PT IS AB AND HARD OF HEARING. HAS HELP AT HOME FROM HER SON. ON TELE. PER PREP ROOM SUPERVISOR [place] IN 50'S. NO MURMURS PRESENT. LUNGS CLEAR BILATERALLY. BREATHING IS UNLABORED AND EASY. LAST BOWEL MOVEMENT WAS YESTERDAY. PT STATED IT WAS NORMAL. CALLS APPROPRIATLY WHEN NEEDING TO USE THE RESTROOM FOR A +1 ASSIST. PT DOES NOT URINATE. SHE IS ANURIC. GENERALIZED WEAKNESS. PT IS SCHEDULED FOR DIALYSIS TODAY. METOPROLOL AND IMDUR-ER HELD DUE TO H/R BELOW 50. CALL LIGHT IN REACH, BED IN LOW POSITION AND CALLS APPROPRIAELTY.
--- NOTE | 2022-01-24 17:46 | NUR ---
[address] MARINA RE BP AND H/R . MEI GIVE HYDRALAZIINE, BUMEX, CATAPRESS, NORVASC, HOLD IMDUR AND METOPROLOL FOR LOW H/R. WILL REVIEW MEDS.
--- NOTE | 2022-01-24 18:47 | NUR ---
PT COOPERATIVE AND PLESEANT. A/O X3. DENIES PAIN. PT ON TELE. HR IN 50-60'S. NO MURMURS PRESENT. LUNGS CLEAR BILATERALLY. BREATHING IS EASY AND UNLABORED. NO BOWEL MOVEMENT THIS SHIFT. LAST BM WAS YESTERDAY ACCORING TO THE PATIENT. PT IS ANURIC. VERY WEAK TODAY. SHE HAD DIALYSIS TODAY THAT MADE HER VERY TIRED. SHE HAS BEEN WAITING ON A BLOOD TRANSFUSION, BUT IT HAS NOT BEEN DELIVERED. BED IN LOW POSITION, CALL LIGHT IN REACH AND CALLS APPROPRIATLY.
--- NOTE | 2022-01-24 19:33 | NUR ---
AGREE TO STUDENT LAST NOTE FOR SUMMARY
[2022-01-24 20:34] LABS: Performing Lab BLOODWORKS; Test Name ABID
--- NOTE | 2022-01-25 04:28 | NUR ---
Patient's blood is ready but per Lab Farhad patient's antibodies had a reaction. Lab sent document for MD to sign to override blood transfusion. Spoke with Dr. Lizarraga, he was not able to come up to look and sign the paper. Talked to Dr. Bueno, she said to get a hgb level this morning again and update her then she will decide. H&H ordered. Patient does not have an active bleed. No complains of pain. No SOB. Patient is blind, needs max assist. Call light within reach.
--- NOTE | 2022-01-25 04:41 | NUR ---
Held patient's blood pressure medication that causes bradycardia. Patient's HR is between 50-60bpm, lowest was 44 bpm per tele. Patient is asymptomatic.
[2022-01-25 05:21] LABS: Hematocrit 22.3 % (33.0-51.0); Hemoglobin 7.2 g/dL (11.5-16.0)
--- NOTE | 2022-01-25 07:41 | NUR ---
ADVISED DO NOT HAVE PERFECT BLOOD MATCH. MD WILL HAVE TO CHECK PAPER THAT SAYS ANTIBIODIES PRESENT AND MAY BE REACTION IF HE WANTS IT GIVEN. HGB NOW 7.2 WAS 6.0. WILL HOLD FOR NOW. LAB TOOK ANOTHER DRAW AND SENT IT OUT.
--- NOTE | 2022-01-25 08:00 | NUR ---
DISCUSS HEART RATE OF 62 WITH MOST TIME IN 50'S. B.P. 152/69. GIVE ALL MEDS EXCEPT FOR METOPROLOL PER MD
--- NOTE | 2022-01-25 15:55 | NUR ---
ALERT. ORIENTED. BLIND. SOME MEDS HELD DUE TO LOW LUCIO RATE IN 50'S. AWARE OF MEDS HELD AND NO TRANSFUSION HIGH RISK FOR REACTION DUE TO ANTIBODIES IN BLOOD. POSSIBLE D'C TOMORROW IF BLD COUNT IS STABLE. UNLABORED RESPIRATIONS.PERMACATH RT C.W. TELE 50-60'S. CATE
--- NOTE | 2022-01-26 05:05 | NUR ---
SHIFT SUMMARY AOX4. BP ELEVATED THIS AM 182/62 & 193/70 GAVE 10MG IV HYDRALAZINE & BP DECREASED TO 164/64. REST OF VITALS STABLE. TELE SB c PVC @51. DENIES PAIN, N/V OR DYSPNEA. PT 1-2 PER STAND PIVOT TRANSFER c GB & FWW. VERY WEAK ON FEET & NEEDS QUES/REMINDING TO WAIT TO SIT UNTIL REACHES BED OR CHAIR. POSSIBLE DC TODAY DEPENDING ON HGB LEVELS. CALL LIGHT IN REACH. WILL MONITOR.
--- NOTE | 2022-01-26 07:10 | NUR ---
andrew felix advised no labs ordered for today. order h&h
[2022-01-26 08:50] LABS: Hematocrit 21.4 % (33.0-51.0); Hemoglobin 6.8 g/dL (11.5-16.0)
--- NOTE | 2022-01-26 09:54 | NUR ---
TALKED TO ABOUT HIGH RISK TRANSFUSION. THOUGHT SHE ALREADY GOT A TRANSFUSION EARLIER IN WEEK. PER LAB WHO WAS ON 01/23 CANCELLED TRANSFUSION THAT WAS ORDERED. LAB WAS DRAWN AND SENT TO [place] TO TRY AND GET COMPATIBLE BLOOD. MD ADVISED PATIENT SHOULD BE 1:1 WHEN/IF THIS BLOOD IS GIVEN TO MONITOR FOR ANY REACTION. ADVISED SHOULD HAVE BENADRYL ORDERED AHEAD OF TIME. MD AWARE HE NEEDS TO SIGN HIGH RISK TRANSFUSION FORM. ADVISED WOULD BE APPROPRIATE TO GIVE DURING DIALYSIS TOMORROW. MD CANCELS TRANSFUSION FOR TODAY AND TO WATCH FOR ANY SIGNS OF LOW HBG.
--- NOTE | 2022-01-26 13:05 | NUR ---
UPDATED SON SRIDHAR, , ON PATIENT CONDITION.
--- NOTE | 2022-01-26 15:19 | NUR ---
KNEE HIGH JEEVAN HOSE APPLIED. PATIENT TOLD CAN LEAVE ON DURING DAY AND OFF AT NIGHT AND IS TO WEAR NONSKID SOCKS OVER THEM. PATIENT VERBALIZES UNDERSTANDING. PATIENT COULD NOT TOLERATE SCD'S YESTERDAY DUE TO HER NEUROPATHY. REFUSES HEPARIN SHOTS FOR DVT PROPHALAXIS.
--- NOTE | 2022-01-26 18:09 | NUR ---
ALERT. FORGETFUL. NO TRANSFUSION TODAY. TO ORDER LABS FOR AM AND SEE IF ANT CHANGES. PER LAB BLOOD THAT IS HERE IS HIGH RISK INCOMPATIBLE. TO HAVE DIALYSIS TOMORROW. POOR APPETITE FOR BREAKFAST AND LUNCH AND PER SON SHE DOES GOOD FOR 2 DAYS THEN DOESN'T EAT MUCH FOR A FEW DAYS. WCTM
--- NOTE | 2022-01-27 05:09 | NUR ---
SHIFT SUMMARY A/OX3, LEGALLY BLIND, SHOAL[place]. USES CALL APPROPRIATELY. CONTINUES TO BE HYPERTENSIVE. TELE SB IN THE 50'S WITH WAP NOTED. DENIES PAIN OR SOB. BED IN LOWEST POSITION WITH CALL LIGHT IN REACH. WILL CONTINUE TO MONITOR AND REPORT TO ONCOMING RN.
[2022-01-27 06:01] LABS: Albumin, Blood 3.2 g/dL (3.4-5.0); Anion Gap 9 mmol/L (6-16); Blood Urea Nitrogen 64 mg/dL (8-24); Bun/Creatinine Ratio 9.2 (12.0-20.0); CO2, Blood 29 mmol/L (21-32); Calcium, Blood 9.9 mg/dL (8.5-10.1); Chloride, Blood 94 mmol/L (98-108); Creatinine, Blood 6.96 mg/dL (0.40-1.00); Glomerular Filtration Rate 6 (60-); Glucose, Blood 264 mg/dL (70-99); Phosphorus, Blood 5.6 mg/dL (2.5-4.9); Potassium, Blood 5.2 mmol/L (3.5-5.5); Sodium, Blood 132 mmol/L (136-145)
--- NOTE | 2022-01-27 07:53 | NUR ---
called dr morales, re bp 185/54 and hr 47 per tele. hold imdur and metoprolol
--- NOTE | 2022-01-27 09:30 | NUR ---
PT PLEASANT AND COOPERATIVE WITH CARE. ALERT AND ORIENTED X3. DENIES PAIN AT THIS TIME. PER CRATE BUILDER PT IS [place] W/ H/R OF 40-50'S. NO NURMURS. HELD METOPROLOL AND IMDUR DUE TO LOW H/R. OKAYED PER PROVIDER. LUNGS CLEAR BILATERALLY. BREATHING IS UNLABORED AND EASY. NO EDEMA PRESENT. PT DOES NOT KNOW WHEN LAST BOWEL MOVEMENT WAS. HAS ACTIVE BOWEL SOUNDS IN ALL FOUR QUADRANTS. PT IS ANURIC AT THIS TIME AND IS ON DIALYSIS. WENT TO DIALYSIS AT 9AM. BED IN LOW POSITION, CALL LIGHT IN REACH AND CALLS APPROPRIAELTY.
[2022-01-27 09:45] LABS: Hematocrit 21.6 % (33.0-51.0); Hemoglobin 6.9 g/dL (11.5-16.0)
--- NOTE | 2022-01-27 12:01 | NUR ---
PT A/O X3 PLEASANT BLIND, [place]. DENIES PAIN AT THIS TIME. H/R REG, NO MURMER NOTED. PER TELE, [place] AT 47. TELE STATES THIS IS HER BASELINE. DISCUSSED WITH DR MARINA, CHOLO GIVE HEART MEDS EXCEPT HOLD IMDUR AND METOPROLOL. DONE. LUNGS CLEAR, RESP EASY, UNLABORED. ON R.A. BT X4 LAST BM YEST PER PT, VOIDS ANURIC R/T DIALYSIS. DIALYSIS PERMACATH RUCW. INTACT AND NO BLEEDING NOTED. BISTULA L ARM, NOT WORKING. BED IN LOW POSITION, CALLLITE IN REACH, CALLS APPROP
--- NOTE | 2022-01-27 16:43 | NUR ---
NO ACUTE CHANGES PT IS AOX3 WITH FORGETFULLNESS. CARE OF PT WAS TAKEN OVER FROM JORGE LUIS PERRY. PT SLEEPING IN BED AT THIS TIME. HR WAS HR WAS [address] MARINA IS AWARE. NO DISTRESS NOTED CALL LIGHT WITHIN REACH WILL CONTINUE TO MONITOR.
--- NOTE | 2022-01-28 05:15 | NUR ---
SHIFT SUMMARY PT ADMITTED CKD/ESRD, A/O, VSS OTHER THAN ELEVATED BP DURING MORNING VITALS IN WHICH PRN HYDRALAZINE WAS GIVEN (SEE EMAR), PT DENIES ANY COMPLAINTS DURING SHIFT, ATTEMPTED 1 BM BUT WAS UNSUCCESSFUL AND NO BOWEL CARE ORDERED (WILL PIGGY BACK ON NEXT CALL TO DR OR HAVE DAY SHIFT GET ORDERS, WHICHEVER COMES FIRST), NO ACUTE EVENTS THIS SHIFT, CALL LIGHT IN REACH WITH EXTRA SENSORY DIRECTOR NURSE CALL BUTTON PT IS BLIND, WILL CTM AND REPORT TO ONCOMING DAY RN.
[2022-01-28 10:03] LABS: Hematocrit 24.5 % (33.0-51.0); Hemoglobin 7.5 g/dL (11.5-16.0)
--- NOTE | 2022-01-28 18:32 | NUR ---
SHIFT SUMMARY THE PATIENT IS ALERT AND ORIENTED X3, PLEASANT AND COOPERATIVE WITH CARE. THE PATIENT HAS NEEDED INSULIN COVERAGE PER SLIDING SCALE X3 THIS SHIFT. THE PATIENT HAS HAD POOR PO INTAKE. HGB UP TO 7.5. THE PATIENT IS BLIND. ABLE TO EAT BETTER THIS EVENING WITH SON AT BEDSIDE. THE PATIENT COMPLAINED OF CONSTIPATION. MIRALAX ORDERED FOR THE PATIENT GIVEN THIS EVENING. 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 PERMA CATH IN THE RIGHT UPPER CHEST. THE PATIENT WILL HAVE DIALYSIS TOMORROW. UP TO THE BSC WITH 1 ASSIST. BED IN LOWEST POSITION, CALL LIGHT WITHIN REACH.
--- NOTE | 2022-01-29 05:43 | NUR ---
Shift Summary Patient with noted bradycardia HR 40s consistently, asymptomatic (BP 167/49 HR 46). Per Dr. Coleman hold clonodine due at 2100. At 0215 BP 194/57 HR 57 pt asymptomatic and stating that she always has "high blood pressure" Hydralazine PRN given with improvement to BP 156/45. Per telegraph service rater HR slowly trended to 50s throughout the night. No urine produced during the night, pt on dialysis oliguric.
[2022-01-29 09:58] LABS: Hematocrit 21.9 % (33.0-51.0); Hemoglobin 6.8 g/dL (11.5-16.0)
--- NOTE | 2022-01-29 19:37 | NUR ---
SHIFT SUMMARY PATIENT IS ALERT AND ORIENTED X4, PLEASANT AND COOPERATIVE WITH CARE. THE PATIENT GOT DIALYSIS THIS SHIFT. PATIENT'S HGB AT 6.8. UP WITH OCCUPATIONAL THERAPY THIS SHIFT. NO ACUTE CHANGES. VSS. BED IN LOWEST POSITION. CALL LIGHT WITHIN REACH.
--- NOTE | 2022-01-30 05:17 | NUR ---
SHIFT SUMMARY 76 Y FEMALE ADMITTED WITH ESRD AND ANEMIA. PT IS AN ESTABLISHED HD PT SCHEDULED FOR M/W/F TX'S. PT IS A&O, PLEASANT AND COOPERATIVE WITH CARE. PT IS LEGALLY BLIND AND DOES REQUIRE ASST WITH ALL ADL'S AND IS A SBA FOR BRP. HGB @7, HOWEVER TRANSFUSION HAS BEEN CONTRAINDICATD AT THIS TIME DUE TO DIFFICULTY W/ TYPE AND CROSS R/T ANTIBODIES PRESENT. NO OTHER CHANGES TO REPORT THIS SHIFT.
[2022-01-30 09:26] LABS: Hematocrit 23.9 % (33.0-51.0); Hemoglobin 7.4 g/dL (11.5-16.0)
[2022-01-30 09:31] LABS: Albumin, Blood 3.1 g/dL (3.4-5.0); Anion Gap 8 mmol/L (6-16); Blood Urea Nitrogen 34 mg/dL (8-24); Bun/Creatinine Ratio 8.6 (12.0-20.0); CO2, Blood 30 mmol/L (21-32); Calcium, Blood 9.5 mg/dL (8.5-10.1); Chloride, Blood 97 mmol/L (98-108); Creatinine, Blood 3.97 mg/dL (0.40-1.00); Glomerular Filtration Rate 11 (60-); Glucose, Blood 261 mg/dL (70-99); Phosphorus, Blood 3.1 mg/dL (2.5-4.9); Potassium, Blood 5.1 mmol/L (3.5-5.5); Sodium, Blood 135 mmol/L (136-145)
--- NOTE | 2022-01-30 16:22 | NUR ---
THE PATIENT ARRIVED ON THE MEDICAL FLOOR AT 1540 THIS SHIFT. THE PATIENT IS IN BED. SPRITE AND CRACKERS BROUGHT TO BEDSIDE. NO DISTRESS AT THIS TIME. LUNGS ARE CLEAR. THE PATIENT DENIES ANY CHEST PAIN CURRENTLY. 1 ASSIST TO THE BSC. ON RA. NO TELE. THE PATIENT HAS BEEN HAVING LOOSE STOOLS PRIOR TO ARRIVAL. CALL LIGHT IN REACH. BED IN LOWEST POSITION.
--- NOTE | 2022-01-30 17:32 | NUR ---
SHIFT SUMMARY THE PATIENT IS ALERT AND ORIENTED X4, PLEASANT AND COOPERATIVE WITH CARE. 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 THE PATIENT HAD DIALYSIS YESTERDAY. THEY MAY HAVE IT AGAIN IN THE MORNING. THE PATIENT'S HGB HAS BEEN 7.4 TODAY. THE PATIENT WORKED WITH OCCUPATIONAL THERAPY. UP TO [place] [facility] [place] 1 [place]IST. THEY WALKED TO THE BATHROOM AND HAD A SHOWER. IV IN THE RIGHT WRIST. INSULIN GIVEN PER SLIDING SCALE X3 THIS SHIFT. MEDS ONE AT A TIME WITH WATER. THE PATIENT'S PO INTAKE HAS BEEN BETTER THE LAST TWO DAYS. THEY ARE TIRED AND RESTING CURRENTLY. NO ACUTE CHANGES. CALL LIGHT WITHIN REACH, BED IN LOWEST POSITION. POSSIBLE DISCHARGE TOMORROW.
[2022-01-31 05:45] LABS: Hematocrit 22.7 % (33.0-51.0); Hemoglobin 7.4 g/dL (11.5-16.0)
--- NOTE | 2022-01-31 06:16 | NUR ---
SHIFT SUMMARY PT IS A 76 Y/O FEMALE, ADMITTED FOR ESRD. SHE IS A&O X 3, BLIND. [place] [facility] [place] [facility] [place] NO C/O ACUTE PAIN, NAUSEA OR SOB. BP WAS ELEVATED AT THE START OF SHIFT AT 203/59, WHICH CAME DOWN TO 183/68 AFTER SCHEDULED HS MEDS. VITAL SIGNS OTHERWISE STABLE. NO ACUTE CHANGES IN PT CONDITION NOTED DURING THE NIGHT. WILL CONTINUE TO MONITOR AND TREAT PER EMAR UNTIL HAND OFF TO DAY SHIFT RN.
[2022-01-31] MEDS ORDERED: MIRALAX17 GM PO (16:32)
[2022-01-31] MEDS ORDERED: CATAPRES0.2 M1 PO (16:35)
[2022-01-31] MEDS ORDERED: METO50ER PO (16:37)
--- NOTE | 2022-01-31 17:01 | NUR ---
PATIENT IS DISCHARGED TO HOME WITH SON. PATIENT TO FOLLOW UP WITH EFM DIRECTED. PATIENT RECEIVED DIALYSIS TODAY PRIOR TO DC. AFTERNOONN MEDICATIONNS ADMIN. SON AND PATIENT VERALIZED DC INSTUCTIONS.
== END 2022-01-31 16:59 | disposition home health service (06) | DRG 699 ==
LOC: ER 11:48 → MEDS 11:49 → ER 11:49 → MEDS 11:50 → ER 11:50 → MEDS 17:30 → ENPENDDIS 01-21 17:43 → MEDS 01-22 15:12
PROVIDERS: Emergency Medicine; Family Medicine; Internal Medicine; Internal Medicine Nephrology; ADMIT Hospitalist
PROC: 5A1D70Z Performance of Urinary Filtration, Intermittent, Less than 6 Hours Per Day (ICD-10-PCS; principal; 2022-01-20)
PROC: 30233N1 Transfusion of Nonautologous Red Blood Cells into Peripheral Vein, Percutaneous Approach (ICD-10-PCS; 2022-01-24)
DX: E11.21 Type 2 diabetes mellitus with diabetic nephropathy (principal); R47.01 Aphasia; G93.49 Other encephalopathy; I50.22 Chronic systolic (congestive) heart failure; Z66 Do not resuscitate; N18.6 End stage renal disease; E87.5 Hyperkalemia; I16.0 Hypertensive urgency; E11.22 Type 2 diabetes mellitus with diabetic chronic kidney disease; D63.1 Anemia in chronic kidney disease; R00.1 Bradycardia, unspecified; E83.39 Other disorders of phosphorus metabolism; R63.0 Anorexia; R63.4 Abnormal weight loss; Z68.23 Body mass index [BMI] 23.0-23.9, adult; E11.319 Type 2 diabetes mellitus with unspecified diabetic retinopathy without macular edema; F32.A Depression, unspecified; H91.8X1 Other specified hearing loss, right ear; I25.10 Atherosclerotic heart disease of native coronary artery without angina pectoris; I11.0 Hypertensive heart disease with heart failure; I25.2 Old myocardial infarction; Z88.2 Allergy status to sulfonamides; Z79.4 Long term (current) use of insulin; Z79.899 Other long term (current) drug therapy; Z79.82 Long term (current) use of aspirin; Z91.15 Patient's noncompliance with renal dialysis; Z86.73 Personal history of transient ischemic attack (TIA), and cerebral infarction without residual deficits; Z99.2 Dependence on renal dialysis; Z79.02 Long term (current) use of antithrombotics/antiplatelets; Z90.49 Acquired absence of other specified parts of digestive tract; Z98.890 Other specified postprocedural states
CPT/HCPCS: 36415; 70450; 71045; 80053; 80069; 82947; 83735; 84100; 85014; 85018; 85025; 86850; 86870; 86880; 86886; 86900; 86901; 86902; 86922; 86971; 93005; 93010; 97110; 97116; 97162; 97166; 97530; 97535; 99285-25; A9270; G0257; J0360; J1644; J2405; Q5106

== ENCOUNTER 2022-03-07 10:35 | Emergency (ER) | payer OTHER ==
[~2022-03-07] VITALS: Ht 160 cm; Wt 59.0 kg
[~2022-03-07 10:35] MED LIST changes: +BENZ100A PO; +CATAPRES0.2 M1 PO; +HYDRA50 PO; +Imdur-ER60 MG PO; +METO25ER PO; +MIRALAX17 GM PO
== END 2022-03-07 14:38 | disposition home or self-care (01) ==
LOC: ER 10:35
DX: I13.2 Hypertensive heart and chronic kidney disease with heart failure and with stage 5 chronic kidney disease, or end stage renal disease (principal); E11.22 Type 2 diabetes mellitus with diabetic chronic kidney disease; N18.6 End stage renal disease; I50.30 Unspecified diastolic (congestive) heart failure; I25.10 Atherosclerotic heart disease of native coronary artery without angina pectoris; B97.4 Respiratory syncytial virus as the cause of diseases classified elsewhere; Z99.2 Dependence on renal dialysis; Z79.4 Long term (current) use of insulin; Z79.899 Other long term (current) drug therapy; Z79.82 Long term (current) use of aspirin
CPT/HCPCS: 99284

== ENCOUNTER 2022-03-09 03:36 | Inpatient (IN) | payer OTHER ==
[~2022-03-09] VITALS: Ht 157.5 cm; Wt 60.8 kg
[2022-03-09 05:21] LABS: BASOPHILS ABSOLUTE AUTO 0.05 K/mm3 (0.00-0.23); BASOPHILS PERCENT AUTO 1 % (0-2); EOSINOPHILS ABSOLUTE AUTO 0.01 K/mm3 (0.00-0.68); EOSINOPHILS PERCENT AUTO 0 % (0-6); IMMATURE GRAN ABSOLUTE AUTO 0.12 K/mm3 (0.00-0.10); IMMATURE GRAN PERCENT AUTO 2 % (0-1); LYMPHOCYTES PERCENT AUTO 10 % (21-46); MONOCYTES ABSOLUTE AUTO 0.93 K/mm3 (0.16-1.47); MONOCYTES PERCENT AUTO 13 % (4-13); Mean Corpuscular HGB 29.3 pg (26.0-34.0); Mean Corpuscular Volume 95 fL (80-100); Mean Platelet Volume 10.6 fL (9.1-12.4); NEUTROPHILS ABSOLUTE AUTO 5.44 K/mm3 (1.96-9.15); NEUTROPHILS PERCENT AUTO 75 % (41-73); NRBC ABSOLUTE 0.04 K/mm3 (0.00-0.02); NRBC Auto 0.6 /100 WBC (0.0-0.2); Platelet Count 188 K/mm3 (150-400); RDW Coefficient Variation 16.3 % (11.7-14.2); RDW Standard Deviation 56.9 fL (35.1-46.3); Red Blood Cell Count 3.07 M/mm3 (3.80-5.20); White Blood Cell Count 7.25 K/mm3 (4.00-11.30)
[2022-03-09 05:29] LABS: Base Excess Venous 10.2 mmol/L; Bicarbonate Venous 32.9 mmol/L (24.0-30.0); PCO2 Venous 47.3 mmHg (38-42); PO2 Venous 78.1 mmHg (38-42); pH Blood Venous 7.46 (7.34-7.37)
[2022-03-09 05:42] LABS: Albumin, Blood 3.3 g/dL (3.4-5.0); Albumin/Globulin Ratio 0.9 (0.8-1.8); Bilirubin, Total 0.7 mg/dL (0.1-1.0); Bun/Creatinine Ratio 6.3 (12.0-20.0); Calcium, Blood 8.5 mg/dL (8.5-10.1); Creatinine, Blood 3.51 mg/dL (0.40-1.00); Globulin, Blood 3.5 g/dL (2.2-4.0); Potassium, Blood 3.9 mmol/L (3.5-5.5); Total Protein, Blood 6.8 g/dL (6.4-8.2)
[2022-03-09] MEDS ORDERED: AMLO10 PO (08:14)
[2022-03-09] MEDS ORDERED: ASPI81CH PO (08:15)
[2022-03-09] MEDS ORDERED: ATORVASTATIN CA80 M1 PO (08:16)
[2022-03-09] MEDS ORDERED: BUME2 PO (08:17)
[2022-03-09] MEDS ORDERED: CALCIUM ACETAT667 MG PO (08:19)
[2022-03-09] MEDS ORDERED: CATAPRES0.3 MG PO (08:20)
[2022-03-09] MEDS ORDERED: HYDRA50 PO (08:21)
[2022-03-09] MEDS ORDERED: SYNTHROID75 MCG PO (08:22)
[2022-03-09] MEDS ORDERED: LOSARTAN POTAS100 M1 PO (08:23)
[2022-03-09] MEDS ORDERED: METO25ER PO (08:24)
[2022-03-09] MEDS ORDERED: PANT40 PO (08:26)
[2022-03-09] MEDS ORDERED: PARO20 PO (08:27)
[2022-03-09] MEDS ORDERED: MIRALAX11910 PO (08:28)
--- NOTE | 2022-03-09 17:30 | NUR ---
SHIFT SUMMARY THE PATIENT IS ALERT AND ORIENTED X3 UNABLE TO RECALL DAY AND MONTH, PLEASANT AND COOPERATIVE WITH CARE. PATIENT IS BLIND BUT ABLE TO SEE BRIGHT LIGHT. PATIENT IS ON 3LPM OF 02 VIA NASAL CANNULA. DIALYSIS PORT IN THE RIGHT UPPER CHEST. PATIENT RECEIVED DIALYSIS IN THEIR ROOM TODAY. TOLERATED IT WELL AND PATIENT HAS BEEN RESTING SINCE. PATIENT CONTINUES TO HAVE A DRY COUGH TODAY. NO ACUTE CHANGES. CALL LIGHT WITHIN REACH, BED IN LOWEST POSITION.
[2022-03-10 04:56] LABS: BASOPHILS ABSOLUTE AUTO 0.06 K/mm3 (0.00-0.23); BASOPHILS PERCENT AUTO 1 % (0-2); EOSINOPHILS ABSOLUTE AUTO 0.06 K/mm3 (0.00-0.68); EOSINOPHILS PERCENT AUTO 1 % (0-6); Hematocrit 28.3 % (33.0-51.0); Hemoglobin 8.5 g/dL (11.5-16.0); IMMATURE GRAN ABSOLUTE AUTO 0.14 K/mm3 (0.00-0.10); IMMATURE GRAN PERCENT AUTO 3 % (0-1); LYMPHOCYTES ABSOLUTE AUTO 0.99 K/mm3 (0.84-5.20); LYMPHOCYTES PERCENT AUTO 21 % (21-46); MONOCYTES ABSOLUTE AUTO 0.63 K/mm3 (0.16-1.47); MONOCYTES PERCENT AUTO 13 % (4-13); Mean Corpuscular Volume 97 fL (80-100); NEUTROPHILS ABSOLUTE AUTO 2.89 K/mm3 (1.96-9.15); NEUTROPHILS PERCENT AUTO 61 % (41-73); Platelet Count 209 K/mm3 (150-400); RDW Standard Deviation 56.8 fL (35.1-46.3); Red Blood Cell Count 2.93 M/mm3 (3.80-5.20); White Blood Cell Count 4.77 K/mm3 (4.00-11.30)
[2022-03-10 05:30] LABS: Albumin, Blood 3.1 g/dL (3.4-5.0); Anion Gap 6 mmol/L (6-16); Blood Urea Nitrogen 22 mg/dL (8-24); Bun/Creatinine Ratio 6.8 (12.0-20.0); CO2, Blood 34 mmol/L (21-32); Calcium, Blood 8.8 mg/dL (8.5-10.1); Chloride, Blood 98 mmol/L (98-108); Creatinine, Blood 3.22 mg/dL (0.40-1.00); Glomerular Filtration Rate 15 (60-); Glucose, Blood 155 mg/dL (70-99); Sodium, Blood 138 mmol/L (136-145)
--- NOTE | 2022-03-10 05:58 | NUR ---
SHIFT SUMMARY: NO SIGNIFICANT EVENTS ON NOC. PATIENT REAMINS ON 3L O2 VIA NC. NO COMPLAINTS OF DYSPNEA/SOB. HAS ONGOING COUGH WITH SMALL AMOUNTS OF SPUTUM. REDNESS NOTED TO BOTTOM. ENCOURAGED PATIENT TO REPOSITION SELF IN BED EVERY 2 HOURS. STAFF HAVE ALSO BEEN REPOSITIONING PATIENT.
--- NOTE | 2022-03-10 14:27 | NUR ---
Attempted to engage pt in conversation about advanced care planning. She has a current AD on file from 2016 that lists her son Chadwick as her HPOA and her dtr Anncy as an alternate decision maker. She is currently a DNR, with no POLST on file. Pt declined completing a POLST or reviewing her AD. She stated "My children will make the decision for me. If they can't agree on what to do, then the one who wants me to live, wins." Asked if this advertising copywriter could contact her son to review paperwork, she declined. She states "He gets upset when people talk to him about that kind of thing." Pt reports she is fatigued and did not want to engage in further conversation. Nursing updated. PC to remain available.
--- NOTE | 2022-03-10 18:13 | NUR ---
SHIFT SUMMARY A/OX3, FLAT/WITHDRAWN AFFECT. DENIES PAIN OR SOB. CURRENTLY ON 3L NC. UP TO CHAIR THIS SHIFT WITH 1 ASSIST FWW AND GB. VSS, NO ACUTE CHANGES AT THIS TIME. BED IN LOWEST POSITION WITH CALL LIGHT IN REACH. WILL CONTINUE TO MONITOR AND REPORT TO ONCOMING RN.
--- NOTE | 2022-03-11 05:08 | NUR ---
SHIFT SUMMARY: NO SIGNIFICANT EVENTS ON NOC. PATIENT WEENED DOWN TO 1L NC SAT > 94%. SLEPT WELL THROUGH THE NIGHT.
--- NOTE | 2022-03-11 19:41 | NUR ---
SHIFT SUMMARY- PT ALERT AND ORIENTED, LEGALLY BLIND SO REQUIRES ASSISTANCE WITH AMBULATION. PT RSV POSSITIVE AND IN ISOLATION AT THIS TIME. IV LEFT UPPER ARM IS SL. PT REQUIRES ENCOURAGEMENT TO PARTICIPATE IN ACTIVITY. SHE DID WORK WITH PT AND OT TODAY. PT CURRENTLY IN BED, CALL LIGHT IN REACH NO S&S OF DISTRESS NOTED. REPORT COMPLETED WITH NIGHT RN HARRISON. PT HAS HAD SOME HTN TODAY BUT IT SEEMS TO HAVE RESOLVED WITH PO MEDICATIONS. SPOKE TO DR ANDINO THIS EVENING THE PLAN IS TO DC THE PT HOME WITH HOME HEALTH TOMORROW OR THURSDAY.
--- NOTE | 2022-03-12 01:20 | NUR ---
PT COMPLAINING OF FEELING UNABLE TO BREATHE. OFFERED PT BREATHING TREATMENT AFTER EXPLAINING THE PATHOLOGY OF RSV. PT LUNGS CLEAR. PT STATES SHE WOULD FEEL BETTER IF SHE GOT A BREATHING TREATMENT. RT CONTACTED TO ADMINISTER TREATMENT.
--- NOTE | 2022-03-12 06:44 | NUR ---
PHOTOGRAPHY TEACHER SUMMARY ADMITTED FOR RSV. PT IS A DNR. SHE IS SOMNOLENT BUT ORIENTED X3. PT IS LEGALLY BLIND. SHE APPEARS TO HAVE LIMITED MOTIVATION TO ASSIST IN HER CARE; IT TAKES A FEW PROMPTS FOR HER TO FOLLOW DIRECTIONS. PT HAS HAD CONTINUED HIGH BLOOD PRESSURE; ADMINISTERED 10 MG OF IV HYDRALAZINE THIS MORNING WITH IMPROVEMENT IN BP FROM 189/71 TO 155/67. PT VERY SOMNOLENT THIS MORNING AND REFUSING TO WAKE UP FOR CARE. SHE DENIES ANY PAIN. RESTING AT 97% ON 1L OF O2, DROPS TO 88% ON RA WITHOUT IT. SHE DID HAVE AN EPISODE WHERE SHE FELT IT DIFFICULT TO BREATHE LAST NIGHT AND WAS GIVEN A BREATHING TREATMENT WITH IMPROVEMENT.
[2022-03-12 10:35] LABS: Hematocrit 27.8 % (33.0-51.0); Hemoglobin 8.6 g/dL (11.5-16.0); Mean Corpuscular HGB 28.8 pg (26.0-34.0); Mean Corpuscular HGB Conc 30.9 g/dL (31.5-36.5); Mean Corpuscular Volume 93 fL (80-100); Mean Platelet Volume 10.6 fL (9.1-12.4); Platelet Count 243 K/mm3 (150-400); RDW Coefficient Variation 15.8 % (11.7-14.2); Red Blood Cell Count 2.99 M/mm3 (3.80-5.20); White Blood Cell Count 5.18 K/mm3 (4.00-11.30)
[2022-03-12 10:48] LABS: Albumin, Blood 2.7 g/dL (3.4-5.0); Anion Gap 12 mmol/L (6-16); Blood Urea Nitrogen 42 mg/dL (8-24); Bun/Creatinine Ratio 8.6 (12.0-20.0); CO2, Blood 30 mmol/L (21-32); Calcium, Blood 9.8 mg/dL (8.5-10.1); Chloride, Blood 96 mmol/L (98-108); Creatinine, Blood 4.89 mg/dL (0.40-1.00); Glomerular Filtration Rate 9 (60-); Glucose, Blood 254 mg/dL (70-99); Phosphorus, Blood 3.2 mg/dL (2.5-4.9); Potassium, Blood 3.7 mmol/L (3.5-5.5); Sodium, Blood 138 mmol/L (136-145)
[2022-03-12 12:04] LABS: BAND PERCENT MAN 2 % (0-8); BASOPHILS ABSOLUTE MAN 0.05 K/mm3 (0.00-0.23); BASOPHILS PERCENT MAN 1 % (0-2); EOSINOPHILS PERCENT MAN 2 % (0-6); LYMPHOCYTES ABSOLUTE MAN 0.98 K/mm3 (0.84-5.20); LYMPHOCYTES PERCENT MAN 19 % (21-46); METAMYELOCYTE ABSOLUTE MAN 0.05 K/mm3 (0.00-0.00); METAMYELOCYTE PERCENT MAN 1 % (0-0); MONOCYTES ABSOLUTE MAN 0.31 K/mm3 (0.16-1.47); MONOCYTES PERCENT MAN 6 % (4-13); MYELOCYTE ABSOLUTE MAN 0.05 K/mm3 (0.00-0.00); MYELOCYTE PERCENT MAN 1 % (0-0); NEUTROPHILS ABSOLUTE MAN 3.62 K/mm3 (1.96-9.15); SEG NEUTROPHILS PERCENT MAN 68 % (41-73); TOTAL CELLS COUNTED 100
[2022-03-12] MEDS ORDERED: AZIT500 PO (15:08)
[2022-03-12] MEDS ORDERED: MIRT15 PO (15:09)
[2022-03-12] MEDS ORDERED: 1/2 NS 250ml250 ML (15:09)
--- NOTE | 2022-03-12 17:08 | NUR ---
PT DISCHARGED 1630 WITH INSTRUCTIONS, WHEELCHAIR OUTSIDE, SON TO TAKE PT HOME. RX FAXED TO [facility].
== END 2022-03-12 16:40 | disposition home health service (06) | DRG 193 ==
LOC: ER 03:36 → MEDS 07:10
PROVIDERS: Emergency Medicine; Internal Medicine Nephrology; ADMIT Family Medicine
PROC: 3E03329 Introduction of Other Anti-infective into Peripheral Vein, Percutaneous Approach (ICD-10-PCS; 2022-03-09)
PROC: 5A1D70Z Performance of Urinary Filtration, Intermittent, Less than 6 Hours Per Day (ICD-10-PCS; principal; 2022-03-11)
DX: J15.9 Unspecified bacterial pneumonia (principal); N18.6 End stage renal disease; J96.01 Acute respiratory failure with hypoxia; I21.A1 Myocardial infarction type 2; I12.0 Hypertensive chronic kidney disease with stage 5 chronic kidney disease or end stage renal disease; J12.1 Respiratory syncytial virus pneumonia; Z66 Do not resuscitate; E11.22 Type 2 diabetes mellitus with diabetic chronic kidney disease; I25.9 Chronic ischemic heart disease, unspecified; Z99.2 Dependence on renal dialysis; H54.7 Unspecified visual loss; D63.1 Anemia in chronic kidney disease; E03.9 Hypothyroidism, unspecified; F41.9 Anxiety disorder, unspecified; F32.A Depression, unspecified; Z86.73 Personal history of transient ischemic attack (TIA), and cerebral infarction without residual deficits; Z90.49 Acquired absence of other specified parts of digestive tract; Z98.890 Other specified postprocedural states; Z79.82 Long term (current) use of aspirin; Z79.4 Long term (current) use of insulin; Z79.899 Other long term (current) drug therapy; Z88.2 Allergy status to sulfonamides; B97.4 Respiratory syncytial virus as the cause of diseases classified elsewhere; Z91.15 Patient's noncompliance with renal dialysis; Z88.8 Allergy status to other drugs, medicaments and biological substances
CPT/HCPCS: 36415; 71045; 80053; 80069; 82803; 82947; 83605; 83880; 84484; 85025; 93005; 93010; 94640; 94664; 94760; 94762; 96365; 96366; 96375; 97110; 97116; 97162; 97165; 97530; 97535; 99285-25; A9270; J0360; J0456; J0696; J1644; J7050; Q5106

== ENCOUNTER 2022-04-25 03:48 | Inpatient (IN) | payer OTHER, MEDICARE ==
[~2022-04-25] VITALS: Ht 157.5 cm; Wt 54.3 kg
[~2022-04-25 03:48] MED LIST changes: +1/2 NS 250ml250 ML; +AMLO10 PO; +ATORVASTATIN CA80 M1 PO; +AZIT500 PO; +CALCIUM ACETAT667 MG PO; +CATAPRES0.3 MG PO; +LOSARTAN POTAS100 M1 PO; +MIRALAX11910 PO; +MIRT15 PO; +PARO20 PO; +SYNTHROID75 MCG PO
[2022-04-25 05:14] LABS: BASOPHILS ABSOLUTE AUTO 0.09 K/mm3 (0.00-0.23); BASOPHILS PERCENT AUTO 1 % (0-2); EOSINOPHILS ABSOLUTE AUTO 0.56 K/mm3 (0.00-0.68); EOSINOPHILS PERCENT AUTO 8 % (0-6); Hematocrit 34.6 % (33.0-51.0); Hemoglobin 10.7 g/dL (11.5-16.0); IMMATURE GRAN ABSOLUTE AUTO 0.01 K/mm3 (0.00-0.10); IMMATURE GRAN PERCENT AUTO 0 % (0-1); LYMPHOCYTES ABSOLUTE AUTO 0.61 K/mm3 (0.84-5.20); LYMPHOCYTES PERCENT AUTO 9 % (21-46); MONOCYTES ABSOLUTE AUTO 0.61 K/mm3 (0.16-1.47); MONOCYTES PERCENT AUTO 9 % (4-13); Mean Corpuscular HGB 28.4 pg (26.0-34.0); Mean Corpuscular HGB Conc 30.9 g/dL (31.5-36.5); Mean Corpuscular Volume 92 fL (80-100); Mean Platelet Volume 10.2 fL (9.1-12.4); NEUTROPHILS ABSOLUTE AUTO 5.13 K/mm3 (1.96-9.15); NEUTROPHILS PERCENT AUTO 73 % (41-73); Platelet Count 235 K/mm3 (150-400); RDW Coefficient Variation 17.5 % (11.7-14.2); RDW Standard Deviation 58.9 fL (35.1-46.3); Red Blood Cell Count 3.77 M/mm3 (3.80-5.20); White Blood Cell Count 7.01 K/mm3 (4.00-11.30)
[2022-04-25 05:28] LABS: Albumin, Blood 3.5 g/dL (3.4-5.0); Albumin/Globulin Ratio 0.9 (0.8-1.8); Bilirubin, Total 0.6 mg/dL (0.1-1.0); Bun/Creatinine Ratio 7.4 (12.0-20.0); Calcium, Blood 9.9 mg/dL (8.5-10.1); Creatinine, Blood 4.59 mg/dL (0.40-1.00); Globulin, Blood 3.7 g/dL (2.2-4.0); Magnesium, Blood 2.5 mg/dL (1.6-2.4); Potassium, Blood 4.6 mmol/L (3.5-5.5); Total Protein, Blood 7.2 g/dL (6.4-8.2)
[2022-04-25 06:37] LABS: Influenza A, PCR NEGATIVE (NEGATIVE); Influenza B, PCR NEGATIVE (NEGATIVE); Resp Syncytial Virus, PCR NEGATIVE (NEGATIVE); SARS-Cov-2 (COVID-19) PCR, MMC NEGATIVE (NEGATIVE)
--- NOTE | 2022-04-25 18:11 | NUR ---
SHIFT SUMMARY PATIENT IS ALERT AND ORIENTED. PATIENT WAS ADMITTED FOR ELEVATED TROPONINS. PATIENTS TROPONINS HAVE INCREASED FROM 4100 TO 15,100 THIS SHIFT, DR NOTIFIED. PATIENT HAS NOT COMPLAINED OF PAIN, NAUSEA, SOB OR VOMITTING THIS SHIFT. PATIENT HAD DIALYSIS TODAY. PATIENT HAS HAD HTN THIS SHIFT. MEDICATED PER EMAR. PATIENT IS ON TELE. VITAL SIGNS REVIEWED. BED IN LOCKED AND LOWEST POSITION. CALL LIGHT IN PLACE. WILL MONITOR UNTIL SHIFT CHANGE.
[2022-04-25 19:01] LABS: Anti-Xa UFH, PHA Monitoring 0.69 IU/mL; International Normalized Ratio 1.05
[2022-04-26 02:00] LABS: Albumin, Blood 3.3 g/dL (3.4-5.0); Albumin/Globulin Ratio 0.9 (0.8-1.8); Bilirubin, Total 0.5 mg/dL (0.1-1.0); Bun/Creatinine Ratio 7.8 (12.0-20.0); Calcium, Blood 9.7 mg/dL (8.5-10.1); Creatinine, Blood 6.19 mg/dL (0.40-1.00); Globulin, Blood 3.6 g/dL (2.2-4.0); Magnesium, Blood 2.6 mg/dL (1.6-2.4); Total Protein, Blood 6.9 g/dL (6.4-8.2)
[2022-04-26 02:04] LABS: BASOPHILS ABSOLUTE AUTO 0.08 K/mm3 (0.00-0.23); BASOPHILS PERCENT AUTO 2 % (0-2); EOSINOPHILS ABSOLUTE AUTO 0.52 K/mm3 (0.00-0.68); EOSINOPHILS PERCENT AUTO 10 % (0-6); Hematocrit 34.1 % (33.0-51.0); Hemoglobin 10.4 g/dL (11.5-16.0); IMMATURE GRAN ABSOLUTE AUTO 0.03 K/mm3 (0.00-0.10); IMMATURE GRAN PERCENT AUTO 1 % (0-1); LYMPHOCYTES ABSOLUTE AUTO 0.78 K/mm3 (0.84-5.20); LYMPHOCYTES PERCENT AUTO 15 % (21-46); MONOCYTES ABSOLUTE AUTO 0.49 K/mm3 (0.16-1.47); MONOCYTES PERCENT AUTO 10 % (4-13); Mean Corpuscular HGB Conc 30.5 g/dL (31.5-36.5); Mean Corpuscular Volume 92 fL (80-100); Mean Platelet Volume 10.8 fL (9.1-12.4); NEUTROPHILS PERCENT AUTO 63 % (41-73); Platelet Count 233 K/mm3 (150-400); RDW Coefficient Variation 17.2 % (11.7-14.2); RDW Standard Deviation 58.4 fL (35.1-46.3); Red Blood Cell Count 3.71 M/mm3 (3.80-5.20)
--- NOTE | 2022-04-26 16:29 | NUR ---
SHIFT SUMMARY PATIENT IS ALERT AND ORIENTED. PATIENT HAS BEEN PLEASENT AND COOPERATIVE WITH CARE THIS SHIFT. PATIENT HAS HAD HIGH BLOOD PRESSURE THIS SHIFT. MEDICATED PRN FOR HIGH BLOOD PRESSURE TWICE THIS SHIFT. PATIENT HAS HX OF HTN. VITAL SIGNS REVIEWED. PATIENT IS STILL ON HEPARIN, NO TITRATION REQUIRED THIS SHIFT. PATIENT IS [place] AND BLIND. MEAL ASSIST STILL NEEDED. BED IN LOCKED AND LOWERED POSITION. CALL LIGHT IN PLACE. WILL MONITOR UNTIL SHIFT CHANGE.
--- NOTE | 2022-04-27 00:31 | NUR ---
CARDIAC: PATIENT HAS BEEN HYPERTENSIVE, 213/84 - 174/68. PRN LABATOLOL AND ALL HS BP MEDS WERE GIVEN WITH POOR EFFECT. PATIENT IS ASYMPTOMATIC. SHAYY ARRIAZA WAS NOTIFIED, NO NEW ORDERS. CONTINUE TO GIVE LABATOLOL FOR SBP OVER 170 Q 2 HOURS. LABATOLOL WAS GIVEN 2 MORE TIMES. BP IS NOW 174/68 HR 75. TELI IS NSR WITH A FIRST DEGREE BLOCK. PATIENT IS SLEEPING AT THIS TIME.
[2022-04-27 05:21] LABS: BASOPHILS ABSOLUTE AUTO 0.07 K/mm3 (0.00-0.23); BASOPHILS PERCENT AUTO 1 % (0-2); EOSINOPHILS ABSOLUTE AUTO 0.43 K/mm3 (0.00-0.68); EOSINOPHILS PERCENT AUTO 7 % (0-6); Hematocrit 31.4 % (33.0-51.0); Hemoglobin 9.4 g/dL (11.5-16.0); IMMATURE GRAN ABSOLUTE AUTO 0.02 K/mm3 (0.00-0.10); IMMATURE GRAN PERCENT AUTO 0 % (0-1); LYMPHOCYTES ABSOLUTE AUTO 0.52 K/mm3 (0.84-5.20); LYMPHOCYTES PERCENT AUTO 8 % (21-46); MONOCYTES ABSOLUTE AUTO 0.61 K/mm3 (0.16-1.47); MONOCYTES PERCENT AUTO 10 % (4-13); Mean Corpuscular HGB 27.8 pg (26.0-34.0); Mean Corpuscular HGB Conc 29.9 g/dL (31.5-36.5); Mean Corpuscular Volume 93 fL (80-100); Mean Platelet Volume 11.1 fL (9.1-12.4); NEUTROPHILS ABSOLUTE AUTO 4.75 K/mm3 (1.96-9.15); NEUTROPHILS PERCENT AUTO 74 % (41-73); Platelet Count 210 K/mm3 (150-400); RDW Coefficient Variation 17.2 % (11.7-14.2); RDW Standard Deviation 57.7 fL (35.1-46.3); Red Blood Cell Count 3.38 M/mm3 (3.80-5.20)
[2022-04-27 05:57] LABS: Albumin, Blood 3.1 g/dL (3.4-5.0); Bilirubin, Total 0.5 mg/dL (0.1-1.0); Bun/Creatinine Ratio 8.6 (12.0-20.0); Calcium, Blood 9.4 mg/dL (8.5-10.1); Creatinine, Blood 7.94 mg/dL (0.40-1.00); Globulin, Blood 3.2 g/dL (2.2-4.0); Phosphorus, Blood 8.7 mg/dL (2.5-4.9); Total Protein, Blood 6.3 g/dL (6.4-8.2)
--- NOTE | 2022-04-27 16:28 | NUR ---
SHIFT SUMMARY PATIENT IS ALERT AND ORIENTED WITH OCCASIONAL CONFUSION. PATIENT IS [place] AND BLIND. PATIENT WAS HYPERTENSIVE IN AM BEFORE MEDS GIVEN, LABETELOL WAS GIVEN ONCE THIS MORNING PRN FOR HTN. LATEST BP IS BETTER. PATIENT STILL ON TELE. PATIENT HAS HAD NO COMPLAINTS OF PAIN, NAUSEA, VOMITTING OR SOB THIS SHIFT. PATIENT HAS HAD NO ACUTE EVENTS THIS SHIFT. VITAL SIGNS REVIEWED. PATIENTS CBG IS BETTER CONTROLLED. BED IN LOCKED AND LOWEST POSITION. CALL LIGHT IN PLACE WILL MONITOR UNTIL SHIFT CHANGE.
--- NOTE | 2022-04-28 05:16 | NUR ---
NO EVENTS DURING THE NIGHT. BP STABLE WITH SCHEDULED MEDICATIONS. OXYGEN ON AND OFF ALL NIGHT.
[2022-04-28 10:05] LABS: BASOPHILS ABSOLUTE AUTO 0.04 K/mm3 (0.00-0.23); BASOPHILS PERCENT AUTO 1 % (0-2); EOSINOPHILS ABSOLUTE AUTO 0.36 K/mm3 (0.00-0.68); EOSINOPHILS PERCENT AUTO 8 % (0-6); Hematocrit 25.6 % (33.0-51.0); Hemoglobin 8.3 g/dL (11.5-16.0); IMMATURE GRAN ABSOLUTE AUTO 0.02 K/mm3 (0.00-0.10); IMMATURE GRAN PERCENT AUTO 0 % (0-1); LYMPHOCYTES ABSOLUTE AUTO 0.39 K/mm3 (0.84-5.20); LYMPHOCYTES PERCENT AUTO 8 % (21-46); MONOCYTES ABSOLUTE AUTO 0.26 K/mm3 (0.16-1.47); MONOCYTES PERCENT AUTO 5 % (4-13); Mean Corpuscular HGB 28.8 pg (26.0-34.0); Mean Corpuscular HGB Conc 32.4 g/dL (31.5-36.5); Mean Corpuscular Volume 89 fL (80-100); Mean Platelet Volume 9.8 fL (9.1-12.4); NEUTROPHILS ABSOLUTE AUTO 3.73 K/mm3 (1.96-9.15); NEUTROPHILS PERCENT AUTO 78 % (41-73); Platelet Count 183 K/mm3 (150-400); RDW Coefficient Variation 17.2 % (11.7-14.2); RDW Standard Deviation 56.3 fL (35.1-46.3); Red Blood Cell Count 2.88 M/mm3 (3.80-5.20)
[2022-04-28 10:24] LABS: Albumin, Blood 2.8 g/dL (3.4-5.0); Albumin/Globulin Ratio 0.9 (0.8-1.8); Bilirubin, Total 0.5 mg/dL (0.1-1.0); Bun/Creatinine Ratio 9.2 (12.0-20.0); Calcium, Blood 9.3 mg/dL (8.5-10.1); Creatinine, Blood 5.74 mg/dL (0.40-1.00); Globulin, Blood 3.1 g/dL (2.2-4.0); Total Protein, Blood 5.9 g/dL (6.4-8.2)
[2022-04-28] MEDS ORDERED: CLOP75 PO (13:59)
[2022-04-28] MEDS ORDERED: CARV6.25 PO (13:59)
--- NOTE | 2022-04-28 16:51 | NUR ---
Patient was AOx3-4 throughout shift. Had dialysis this morning. Discharge papers were completed and educational materials were provided. Client's children were here to assist with transport. No distress noted, escorted otut via wheelchair by nursing aid. Encouraged to call with any futher questions.
== END 2022-04-28 16:09 | disposition home or self-care (01) | DRG 280 ==
LOC: ER 03:48 → MEDS 09:31
PROVIDERS: Internal Medicine Cardiovascular Disease; Internal Medicine Nephrology; Student in an Organized Health Care Education/Training Program; ADMIT Internal Medicine
DX: I21.4 Non-ST elevation (NSTEMI) myocardial infarction (principal); N18.6 End stage renal disease; I16.1 Hypertensive emergency; I50.32 Chronic diastolic (congestive) heart failure; J96.11 Chronic respiratory failure with hypoxia; I13.2 Hypertensive heart and chronic kidney disease with heart failure and with stage 5 chronic kidney disease, or end stage renal disease; Z20.822 Contact with and (suspected) exposure to COVID-19; I25.10 Atherosclerotic heart disease of native coronary artery without angina pectoris; D63.1 Anemia in chronic kidney disease; E11.22 Type 2 diabetes mellitus with diabetic chronic kidney disease; H54.7 Unspecified visual loss; E11.40 Type 2 diabetes mellitus with diabetic neuropathy, unspecified; E78.5 Hyperlipidemia, unspecified; H91.92 Unspecified hearing loss, left ear; E03.9 Hypothyroidism, unspecified; Z99.81 Dependence on supplemental oxygen; Z86.73 Personal history of transient ischemic attack (TIA), and cerebral infarction without residual deficits; Z90.49 Acquired absence of other specified parts of digestive tract; Z98.890 Other specified postprocedural states; Z88.8 Allergy status to other drugs, medicaments and biological substances; Z88.2 Allergy status to sulfonamides; Z79.4 Long term (current) use of insulin; Z79.82 Long term (current) use of aspirin; Z79.899 Other long term (current) drug therapy
CPT/HCPCS: 0241U; 36415; 71046; 80053; 82947; 83735; 84100; 84484; 85025; 85520; 85610; 85730; 93005; 93010; 96365; 96366; 96375; 99285-25; A9270; J1644; J1815; J7040; P9046; Q5106

== ENCOUNTER 2022-09-25 08:09 | Emergency (ER) | payer OTHER ==
[~2022-09-25] VITALS: Ht 157.5 cm; Wt 52.6 kg
[~2022-09-25 08:09] MED LIST changes: +CARV6.25 PO
[2022-09-25 10:27] LABS: BASOPHILS ABSOLUTE AUTO 0.08 K/mm3 (0.00-0.23); BASOPHILS PERCENT AUTO 1 % (0-2); EOSINOPHILS ABSOLUTE AUTO 0.41 K/mm3 (0.00-0.68); EOSINOPHILS PERCENT AUTO 6 % (0-6); Hematocrit 29.5 % (33.0-51.0); Hemoglobin 9.5 g/dL (11.5-16.0); IMMATURE GRAN ABSOLUTE AUTO 0.02 K/mm3 (0.00-0.10); IMMATURE GRAN PERCENT AUTO 0 % (0-1); LYMPHOCYTES ABSOLUTE AUTO 0.46 K/mm3 (0.84-5.20); LYMPHOCYTES PERCENT AUTO 6 % (21-46); MONOCYTES ABSOLUTE AUTO 0.56 K/mm3 (0.16-1.47); MONOCYTES PERCENT AUTO 8 % (4-13); Mean Corpuscular HGB 29.3 pg (26.0-34.0); Mean Corpuscular HGB Conc 32.2 g/dL (31.5-36.5); Mean Corpuscular Volume 91 fL (80-100); Mean Platelet Volume 11.2 fL (9.1-12.4); NEUTROPHILS PERCENT AUTO 79 % (41-73); Platelet Count 214 K/mm3 (150-400); RDW Coefficient Variation 16.1 % (11.7-14.2); RDW Standard Deviation 53.3 fL (35.1-46.3); Red Blood Cell Count 3.24 M/mm3 (3.80-5.20); White Blood Cell Count 7.33 K/mm3 (4.00-11.30)
[2022-09-25 10:42] LABS: Albumin, Blood 3.7 g/dL (3.4-5.0); Albumin/Globulin Ratio 0.9 (0.8-1.8); Bilirubin, Total 0.6 mg/dL (0.1-1.0); Bun/Creatinine Ratio 11.2 (12.0-20.0); Calcium, Blood 9.7 mg/dL (8.5-10.1); Creatinine, Blood 6.97 mg/dL (0.40-1.00); Globulin, Blood 3.9 g/dL (2.2-4.0); Potassium, Blood 5.6 mmol/L (3.5-5.5); Total Protein, Blood 7.6 g/dL (6.4-8.2)
[2022-09-25 13:06] LABS: Influenza A, PCR NEGATIVE (NEGATIVE); Influenza B, PCR NEGATIVE (NEGATIVE); Resp Syncytial Virus, PCR NEGATIVE (NEGATIVE); SARS-Cov-2 (COVID-19) PCR, MMC NEGATIVE (NEGATIVE)
== END 2022-09-25 14:22 | disposition home or self-care (01) ==
LOC: ER 08:09
PROVIDERS: Physician Assistant; Student in an Organized Health Care Education/Training Program
DX: J90 Pleural effusion, not elsewhere classified (principal); N18.6 End stage renal disease; Z99.2 Dependence on renal dialysis; E87.5 Hyperkalemia; Z88.2 Allergy status to sulfonamides; Z79.899 Other long term (current) drug therapy; Z79.82 Long term (current) use of aspirin; Z79.4 Long term (current) use of insulin; E11.22 Type 2 diabetes mellitus with diabetic chronic kidney disease; I13.2 Hypertensive heart and chronic kidney disease with heart failure and with stage 5 chronic kidney disease, or end stage renal disease; I25.10 Atherosclerotic heart disease of native coronary artery without angina pectoris
CPT/HCPCS: 0241U; 36415; 71046; 80053; 83880; 84145; 84484; 85025; 93005; 93010

== ENCOUNTER 2023-02-20 04:35 | Inpatient (IN) | payer OTHER ==
[2023-02-20] VITALS (65 sets, daily range): BP systolic 50–147; BP diastolic 29–99
[~2023-02-20] VITALS: Ht 160 cm; Wt 60.0 kg
[~2023-02-20 04:35] MED LIST changes: -AMLO10 PO; +CODACE30 PO; -PARO20 PO; +PROM25 PO; +ROSUVASTATIN CA10 MG PO
[2023-02-20 05:25] LABS: BASOPHILS ABSOLUTE AUTO 0.07 K/mm3 (0.00-0.23); BASOPHILS PERCENT AUTO 1 % (0-2); EOSINOPHILS ABSOLUTE AUTO 0.03 K/mm3 (0.00-0.68); EOSINOPHILS PERCENT AUTO 0 % (0-6); Hematocrit 28.6 % (33.0-51.0); Hemoglobin 8.9 g/dL (11.5-16.0); IMMATURE GRAN ABSOLUTE AUTO 0.07 K/mm3 (0.00-0.10); IMMATURE GRAN PERCENT AUTO 1 % (0-1); LYMPHOCYTES ABSOLUTE AUTO 0.75 K/mm3 (0.84-5.20); LYMPHOCYTES PERCENT AUTO 6 % (21-46); MONOCYTES ABSOLUTE AUTO 1.12 K/mm3 (0.16-1.47); MONOCYTES PERCENT AUTO 8 % (4-13); Mean Corpuscular HGB 27.9 pg (26.0-34.0); Mean Corpuscular HGB Conc 31.1 g/dL (31.5-36.5); Mean Corpuscular Volume 90 fL (80-100); Mean Platelet Volume 11.3 fL (9.1-12.4); NEUTROPHILS ABSOLUTE AUTO 11.37 K/mm3 (1.96-9.15); NEUTROPHILS PERCENT AUTO 85 % (41-73); Platelet Count 210 K/mm3 (150-400); RDW Coefficient Variation 17.4 % (11.7-14.2); RDW Standard Deviation 55.8 fL (35.1-46.3); Red Blood Cell Count 3.19 M/mm3 (3.80-5.20); White Blood Cell Count 13.41 K/mm3 (4.00-11.30)
[2023-02-20 06:04] LABS: Albumin, Blood 3.3 g/dL (3.4-5.0); Albumin/Globulin Ratio 0.8 (0.8-1.8); Bilirubin, Total 0.3 mg/dL (0.1-1.0); Bun/Creatinine Ratio 12.2 (12.0-20.0); Calcium, Blood 8.8 mg/dL (8.5-10.1); Creatinine, Blood 4.33 mg/dL (0.40-1.00); Globulin, Blood 4.4 g/dL (2.2-4.0); Potassium, Blood 5.3 mmol/L (3.5-5.5); Total Protein, Blood 7.7 g/dL (6.4-8.2)
[2023-02-20 12:39] LABS: Anti-Xa UFH, PHA Monitoring <0.10 IU/mL; International Normalized Ratio 1.04; Prothrombin Time Results 10.9 Sec (9.7-11.5)
[2023-02-20 18:01] LABS: BASOPHILS ABSOLUTE AUTO 0.05 K/mm3 (0.00-0.23); BASOPHILS PERCENT AUTO 1 % (0-2); EOSINOPHILS ABSOLUTE AUTO 0.17 K/mm3 (0.00-0.68); EOSINOPHILS PERCENT AUTO 2 % (0-6); Hematocrit 28.9 % (33.0-51.0); IMMATURE GRAN ABSOLUTE AUTO 0.05 K/mm3 (0.00-0.10); IMMATURE GRAN PERCENT AUTO 1 % (0-1); LYMPHOCYTES ABSOLUTE AUTO 0.62 K/mm3 (0.84-5.20); LYMPHOCYTES PERCENT AUTO 6 % (21-46); MONOCYTES ABSOLUTE AUTO 0.86 K/mm3 (0.16-1.47); MONOCYTES PERCENT AUTO 9 % (4-13); Mean Corpuscular HGB 28.3 pg (26.0-34.0); Mean Corpuscular HGB Conc 31.1 g/dL (31.5-36.5); Mean Corpuscular Volume 91 fL (80-100); Mean Platelet Volume 11.2 fL (9.1-12.4); NEUTROPHILS ABSOLUTE AUTO 8.32 K/mm3 (1.96-9.15); NEUTROPHILS PERCENT AUTO 83 % (41-73); Platelet Count 209 K/mm3 (150-400); RDW Coefficient Variation 17.5 % (11.7-14.2); RDW Standard Deviation 58.6 fL (35.1-46.3); Red Blood Cell Count 3.18 M/mm3 (3.80-5.20); White Blood Cell Count 10.07 K/mm3 (4.00-11.30)
[2023-02-20 18:57] LABS: Albumin, Blood 3.1 g/dL (3.4-5.0); Anion Gap 10 mmol/L (6-16); Blood Urea Nitrogen 61 mg/dL (8-24); Bun/Creatinine Ratio 11.5 (12.0-20.0); CO2, Blood 27 mmol/L (21-32); Calcium, Blood 8.9 mg/dL (8.5-10.1); Chloride, Blood 89 mmol/L (98-108); Glomerular Filtration Rate 8 (60-); Glucose, Blood 260 mg/dL (70-99); Phosphorus, Blood 6.6 mg/dL (2.5-4.9); Potassium, Blood 5.3 mmol/L (3.5-5.5); Sodium, Blood 126 mmol/L (136-145)
--- NOTE | 2023-02-20 19:01 | NUR ---
SHIFT SUMMARY PT ARRIVED APROX 1250 TO PCU20. PT ABLE TO STAND AND PIVOT TO BED ON L FOOT, 2 PERSON ASSIST. PT IS A&OX4, ORIENTED TO ROOM/CALL LIGHT AND UNIT ROUTINES. SON AT BEDSIDE AND MEDICATION LIST RECONCILLED. POWERGLIDE PLACED AND HEPARIN GTT STARTED. 1725 BP NOTED TO BE 72/62, HD RN AT BEDSIDE SETTING UP FOR RUN. DR ANDINO AND DR OLIVIER NOTIFIED, NEW ORDERS RECEIVED. SEE DOCUMENTED VS. PT CLOSELY MONITORED WITH CONTINUOUS TELEMETRY, BP Q 15 MIN, CONTINUOUS PULSE OX. DR ANDINO UPDATED ON PT CONDITION APROX 1800, NO NEW ORDERS AT THIS TIME. RN UNABLE TO RUN HD AT THIS TIME, DR OLIVIER NOTIFIED BY HD RN. 1910 PT AWAKE, ALERT SITTING UP EATING DINNER. NO COMPLAINTS. WILL GIVE REPORT TO NOC SHIFT RN.
--- NOTE | 2023-02-20 19:32 | NUR ---
auto design detailer came in at approx 1600pm to set up machine for pt tx. Orders were in hand and machine was ready to go at approx 1645pm. HD RN to pt bedside in room PCU20 at approx 1700pm. shoe repair supervisor and pt consent signed at 1710pm. Pt RCVC permcath ports were sluggish when I pulled the citrate/heparin from the lumens. I flushed each side and again both sides were very slow to draw. Between setting up the machine and preparing the pt to be connecte dto the dialysis machine I connected her BP cuff and SpO2 monitor and took her tempurature as part of our pre procedureal process. Her vitals at 1709 were as follows: temp: 97.9, bp 94/65, hr 76, spo2 97% on 2 ltrs of o2 delivered via nasal canula. Pt denied being nauseaous, dizzy, or in pain. She did mention that she was extreamly itchy and when I asked she explained that this is not normnal for her. She then expressed to me that she was short of breath. at 1715pm her bp was 100/37 and the bedside RN and charge nurse came in to check on the pt. I expressed that she had mentione dto me that she was SOB and very itchy. I also let them know that the bp cuff may not be in the best position as she has an IV line in her upper right arm and I noticed that she has an old fistula that is no longer being used on her upper left arm. This ment that I could only take bp on her right forearm or one of her legs because the right leg is being monitored for possible infection. After trying several locations the bp cuff remained on the right forearm. At approx 1724 her bp reading was 72/62 and another at 1726 of 76/35. About this time the pnp from the ICU came over to check things out. Dr escalera showed up at approx 1745 to the pt room and we discussed the plan to use albumin with her tx and give her a dose of midodrine and to not remove fluids from the pt unless the tx was running stable and to only do a 2 hour tx. I obtained the albumin from the pharmacy and the pump and set up to run the albumin. I flushed her lines to ensure that they would stay open. I set up the pump and then connected her lines to the machine and started the treatment. I stood at the machine for approx 10 mins fighting venous pressure alarms and tmp alarms. The blood pump would shut off and pause the tx. I would select reset and readjust the alarms and it would run again for about 20 second and shut off agian. Over this period I checked the lines to ensure that the blood lines were unclamped that the transducers were unclampped and that the saline was clamped. I check the lines for kinks. I removed the venous transducer and replced it izzy bolden appeared to be blood climbing up the line, althoug after replacing the transducer and connecting and unclamping it just filled back up 1/[address] way with blood agian. Unable to get the blood pump to run I decicded to return her blood. This was difficult due to the alarms trying t shut off the pump but I was able to sucessfully return her blood. After communicating with the and [facility] bedside RN it was determined that the patient was too unstable to try to restart the treatment again. It is being determine dif she requires higher level care in the ICU or not. We will likely try to do dialysis again tomorrow.
[2023-02-21] VITALS (48 sets, daily range): BP systolic 35–136; BP diastolic 17–85
[2023-02-21 05:10] LABS: Hematocrit 29.4 % (33.0-51.0); Mean Platelet Volume 11.2 fL (9.1-12.4); Platelet Count 243 K/mm3 (150-400)
--- NOTE | 2023-02-21 07:21 | NUR ---
SHIFT SUMMARY: PT HAD MORE HYPOTENSIVE EVENT THIS MORNING AT 0600L; DR BURDEN BY TO ROUND ON HIS PATIENT'S AND WAS ABLE TO COME IN TO ASSESS. PER DR ANDNIO, THE PT'S MIDODRINE DOSE INCREASED AND A 10 NG DOSE GIVEN AT 0615. BP STARTED TO STABILIZE AND IMPROVE TO SBP 90-100'S. PT'S MENTATION HAS NOT CHANGES THROUGHOUT THE NIGHT, REMAINS A&O X 4. BED LOWERED, CALL LIGHT IN REACH, WILL CONTINUE TO MONITOR UNTIL ONCOMING RN ARRIVES.
--- NOTE | 2023-02-21 07:36 | NUR ---
ASSUMED CARE: PT RESTING QUIETLY IN BED AT THIS TIME. HEPARIN GTT RUNNING PER ORDERS AND VERIFIED WITH NIGHT RN. NSR ON TELE. LINES DRAWN TO AFFECTED FOOT. AWAITING DR COTTO CONSULT FOR FURTHER INSTRUCTION. NPO AT THIS TIME FOR POTENTIAL PROCEDURE. NO ACUTE NEEDS OR CONCERNS AT THIS TIME.
--- NOTE | 2023-02-21 08:55 | NUR ---
PT TAKEN TO DIALYSIS VIA BED BY RICKY.
--- NOTE | 2023-02-21 11:34 | NUR ---
ATTEMPTED TO CALL DR COTTO TO FIND OUT PLAN. NURSING DIGITAL MARKETING COORDINATOR SAID THAT THERE WAS NOTHING FOR PATIENT ON SCHEDULE. KRIS PHYSICIAN CALLED AND FOUND THAT HE IS PLANNING ON DOING PROCEDURE LATER TODAY. MELISSA PHYSICIAN AWARE OF PT'S CHRONIC NAUSEA AND MAKING CHANGES TO PAIN AND NAUSEA MANAGEMENT. NO FURTHER NEEDS AT THIS TIME.
--- NOTE | 2023-02-21 12:17 | NUR ---
PT RETURNED FROM DIALYSIS VIA BED BY PORCELAIN BUILDUP ASSISTANT STAFF. C/O PAIN 05/28, THROBBING RIGHT FOOT. MEDICATED PER ORDERS AND BLANKETS PULLED BACK SO THE WEIGHT IS NOT ON FOOT. DENIES FURTHER NEEDS AT THIS TIME.
[2023-02-21 15:39] LABS: Anion Gap 11 mmol/L (6-16); Blood Urea Nitrogen 41 mg/dL (8-24); Bun/Creatinine Ratio 10.6 (12.0-20.0); CO2, Blood 26 mmol/L (21-32); Calcium, Blood 8.9 mg/dL (8.5-10.1); Chloride, Blood 95 mmol/L (98-108); Creatinine, Blood 3.85 mg/dL (0.40-1.00); Glomerular Filtration Rate 12 (60-); Glucose, Blood 171 mg/dL (70-99); Phosphorus, Blood 5.4 mg/dL (2.5-4.9); Sodium, Blood 132 mmol/L (136-145)
--- NOTE | 2023-02-21 16:35 | NUR ---
DR COTTO CAME TO CONSENT PT FOR PROCEDURE AND SON WAS AT BEDSIDE TO CONSENT FOR PROCEDURE. BUSINESS ETHICS PROFESSOR STAFF AT BEDSIDE AT THIS TIME. DR COTTO AWARE THAT HEPARIN IS ON STANDBY DUE TO ELEVATED XA HEPARIN LAB
--- NOTE | 2023-02-21 18:04 | NUR ---
SHIFT SUMMARY: PT REMAINS AT [facility] BUT STAFF CALLED AND SAID PT WILL BE RETURNING SOON. MEDICATED X2 FOR PAIN. LETHARGIC AFTER MEDICATED BUT RIGHT FOOT HAS BEEN VERY TENDER PRIOR TO PROCEDURE. HEPARIN GTT ON SB UNTIL FURTHER INSTRUCTIONS.
--- NOTE | 2023-02-21 18:17 | NUR ---
PT RETURNED FROM HOTEL RESERVATION AGENT WITH ANGIOCELE IN PLACE TO LEFT GROIN. RIGHT FOOT BRIGHT RED, WITH SLIGHT PULSE NOTED TO RIGHT FOOT THAT WAS NOT PRESENT PRIOR TO PROCEDURE. SLIGHT BRUISING TO LEFT GROIN THAT HOTEL RESERVATION AGENT SITE STATE DR COTTO WAS AWARE OF. HOTEL RESERVATION AGENT STAFF REPORTS RESTARTING HEPARIN IN [address] DELAROSA FACE TIMED PT AND STATES DIALYSIS NOT NEEDED UNTIL THURSDAY SINCE PT WAS RUN TODAY. AWARE OF PROCEDURE DONE IN HOTEL RESERVATION AGENT. VERIFIED FISTULA PRECAUTIONS WERE NOT NECESSARY IN LEFT ARM WHERE OLD FISTULA LIES. PT REMAINS SOMNOLENT BUT OPENS EYES TO NOXIOUS STIMULI. SON AT BEDSIDE AND HAS BEEN UPDATED ON STATUS.
[2023-02-22] VITALS (22 sets, daily range): BP systolic 106–179; BP diastolic 14–65
[2023-02-22 05:13] LABS: BASOPHILS ABSOLUTE AUTO 0.06 K/mm3 (0.00-0.23); BASOPHILS PERCENT AUTO 0 % (0-2); EOSINOPHILS ABSOLUTE AUTO 0.01 K/mm3 (0.00-0.68); EOSINOPHILS PERCENT AUTO 0 % (0-6); Hematocrit 28.6 % (33.0-51.0); Hemoglobin 8.9 g/dL (11.5-16.0); IMMATURE GRAN PERCENT AUTO 1 % (0-1); LYMPHOCYTES ABSOLUTE AUTO 0.56 K/mm3 (0.84-5.20); LYMPHOCYTES PERCENT AUTO 4 % (21-46); MONOCYTES ABSOLUTE AUTO 1.29 K/mm3 (0.16-1.47); MONOCYTES PERCENT AUTO 9 % (4-13); Mean Corpuscular HGB 27.9 pg (26.0-34.0); Mean Corpuscular HGB Conc 31.1 g/dL (31.5-36.5); Mean Corpuscular Volume 90 fL (80-100); Mean Platelet Volume 10.8 fL (9.1-12.4); NEUTROPHILS PERCENT AUTO 86 % (41-73); NRBC ABSOLUTE 0.02 K/mm3 (0.00-0.02); NRBC Auto 0.1 /100 WBC (0.0-0.2); Platelet Count 250 K/mm3 (150-400); RDW Coefficient Variation 18.2 % (11.7-14.2); RDW Standard Deviation 59.4 fL (35.1-46.3); Red Blood Cell Count 3.19 M/mm3 (3.80-5.20); White Blood Cell Count 14.42 K/mm3 (4.00-11.30)
[2023-02-22 05:38] LABS: Magnesium, Blood 2.2 mg/dL (1.6-2.4)
[2023-02-22 05:48] LABS: Albumin, Blood 3.9 g/dL (3.4-5.0); Anion Gap 14 mmol/L (6-16); Blood Urea Nitrogen 56 mg/dL (8-24); Bun/Creatinine Ratio 11.7 (12.0-20.0); CO2, Blood 23 mmol/L (21-32); Calcium, Blood 8.7 mg/dL (8.5-10.1); Chloride, Blood 94 mmol/L (98-108); Creatinine, Blood 4.77 mg/dL (0.40-1.00); Glomerular Filtration Rate 9 (60-); Glucose, Blood 173 mg/dL (70-99); Phosphorus, Blood 7.9 mg/dL (2.5-4.9); Potassium, Blood 6.1 mmol/L (3.5-5.5); Sodium, Blood 131 mmol/L (136-145)
--- NOTE | 2023-02-22 06:26 | NUR ---
SIHFT SUMMARY PATIENT ALERT, ORIENTED x3-4. BP HYPOTENSIVE AT TIMES DURING THE NIGHT, MEDICATED PER EMAR WITH PRN MIDODRINE. ON 3L NC WITH O2 SAT >93%. RIGHT FOOT REMAINS BRIGHT RED WITH SLIGHT PULSE AND PATIENT REPORTING SOME TENDERNESS. LEFT GROIN SITE DRESSING C/D/I, SLIGHT BRUISING AROUND AREA BUT NO HEMATOMA NOTED. LARGE BM DURING THE NIGHT. HEPARIN GTT INFUSING. NO OTHER CHANGES, WILL REPORT TO DAY SHIFT RN.
--- NOTE | 2023-02-22 07:09 | NUR ---
ASSUMED CARE: PT RESTING QUIETLY AT THIS TIME. NSR IN 70S ON TELE. RIGHT FOOT RED AND WARM. HEPARIN GTT RUNNING. ORDER VERIFIED WITH NIGHT RN. DR DELAROSA NOTIFIED IN REGARDS TO ELEVATED POTASSIUM. PLANS FOR DIALYSIS LATER THIS AM. NO FURTHER NEEDS OR CONCERNS AT THIS TIME.
--- NOTE | 2023-02-22 08:02 | NUR ---
PT TAKEN TO DIALYSIS VIA BED BY RICKY
--- NOTE | 2023-02-22 12:25 | NUR ---
PT RETURNED TO ROOM FROM DIALYSIS VIA BED BY NURSING STAFF. ASSISTED WITH LUNCH. MEDICATED FOR PAIN. RIGHT FOOT RED AND TENDER. PULSES EASIER TO PALPATE BUT LAST THREE TOES PURPLE. WILL DISCUSS WITH DR ANDINO
--- NOTE | 2023-02-22 12:48 | NUR ---
DR ANDINO INSTRUCTED THIS RN TO CONTACT DR COTTO. DR COTTO SAID THERE IS NOTHING FURTHER FROM A VASCULAR STANDPOINT THAT CAN BE DONE. STATED THAT DR ANDINO CAN SWITCH PT TO ORAL ANTICOAGULANTS AND SHE WILL NEED TO FOLLOW UP WITH PODIATRY TO DETERMINE FURTHER PLANS FOR LAST THREE TOES. CALL BACK TO DR ANDINO TO RELAY THIS.
--- NOTE | 2023-02-22 16:34 | NUR ---
TELE NOTED PT WAS DESATURATING INTO 70S WITH SLEEP. PT AWOKE ASKING FOR PAIN MEDICATION AND SAID SHE COULDN'T BREATHE. SPOKE WITH DR ANDINO WHO CHANGED FENTANYL ORDERS AND STATED TO FAVOR THAT OVER THE OXY FOR ADMINISTRATION DUE TO THE FASTER METOBOLIZING AND POOR KIDNEY FUNCTION. NOT PLANNING TO DISCHARGE PT IMMEDIATELY SO DC PLAN FOR PAIN MEDS WILL OCCUR DOWN THE ROAD. HAND IRONER AWARE
--- NOTE | 2023-02-22 17:57 | NUR ---
SHIFT SUMMARY: PT CONTINUES TO HAVE HEPARIN GTT RUNNING AND EFM DOCS TO ORDER PO ANTICOAGULANTS TOMORROW. PLANS FOR PODIATRY TO F/U WITH PT TOMORROW. FAMILY GIVEN UPDATE BY DR ANDINO. MEDICATING FOR PAIN ABLE. NO FURTHER NEEDS OR CONCERNS AT THIS TIME.
[2023-02-23] VITALS: BP 127/68
[2023-02-23 05:17] LABS: BASOPHILS ABSOLUTE AUTO 0.07 K/mm3 (0.00-0.23); BASOPHILS PERCENT AUTO 1 % (0-2); EOSINOPHILS ABSOLUTE AUTO 0.21 K/mm3 (0.00-0.68); EOSINOPHILS PERCENT AUTO 2 % (0-6); Hematocrit 25.7 % (33.0-51.0); Hemoglobin 7.8 g/dL (11.5-16.0); IMMATURE GRAN ABSOLUTE AUTO 0.15 K/mm3 (0.00-0.10); IMMATURE GRAN PERCENT AUTO 1 % (0-1); LYMPHOCYTES ABSOLUTE AUTO 0.71 K/mm3 (0.84-5.20); LYMPHOCYTES PERCENT AUTO 6 % (21-46); MONOCYTES ABSOLUTE AUTO 1.08 K/mm3 (0.16-1.47); MONOCYTES PERCENT AUTO 9 % (4-13); Mean Corpuscular HGB 27.5 pg (26.0-34.0); Mean Corpuscular HGB Conc 30.4 g/dL (31.5-36.5); Mean Corpuscular Volume 91 fL (80-100); NEUTROPHILS ABSOLUTE AUTO 9.28 K/mm3 (1.96-9.15); NEUTROPHILS PERCENT AUTO 81 % (41-73); NRBC ABSOLUTE 0.11 K/mm3 (0.00-0.02); Platelet Count 204 K/mm3 (150-400); RDW Coefficient Variation 18.2 % (11.7-14.2); RDW Standard Deviation 59.3 fL (35.1-46.3); Red Blood Cell Count 2.84 M/mm3 (3.80-5.20)
[2023-02-23 05:29] VITALS: BP 105/53
[2023-02-23 05:41] LABS: Albumin, Blood 4.1 g/dL (3.4-5.0); Anion Gap 8 mmol/L (6-16); Blood Urea Nitrogen 35 mg/dL (8-24); Bun/Creatinine Ratio 9.8 (12.0-20.0); CO2, Blood 29 mmol/L (21-32); Calcium, Blood 8.9 mg/dL (8.5-10.1); Chloride, Blood 95 mmol/L (98-108); Creatinine, Blood 3.57 mg/dL (0.40-1.00); Glomerular Filtration Rate 13 (60-); Glucose, Blood 83 mg/dL (70-99); Magnesium, Blood 2.1 mg/dL (1.6-2.4); Phosphorus, Blood 6.2 mg/dL (2.5-4.9); Potassium, Blood 4.3 mmol/L (3.5-5.5); Sodium, Blood 132 mmol/L (136-145)
--- NOTE | 2023-02-23 06:10 | NUR ---
SHIFT SUMMARY PATIENT ALERT AND ORIENTED, ABLE TO MAKE NEEDS KNOWN TO STAFF. BP STABLE THIS SHIFT, NO MIDODRINE NEEDED OVERNIGHT, PATIENT ON 2-3L NC WITH O2 SAT >92%, ALL OTHER VITALS STABLE. 2ND, 3RD AND 4TH RIGHT TOES CONTINUE TO BE DUSKY AND COOL. RIGHT FOOT PAINFUL DURING THE NIGHT, MEDICATED PER EMAR FOR PAIN. HEPARIN GTT INFUSING WITH PLANS TO TRANSITION TO ORALS DURING DAY SHIFT. NO OTHER SIGNIFICANT CHANGES THIS SHIFT, WILL REPORT TO DAY SHIFT RN.
[2023-02-23 07:30] VITALS: BP 117/62
--- NOTE | 2023-02-23 09:03 | NUR ---
ASSUMED CARE: ASSUMED CARE OF PT APPROX 0715. PT SLEEPING IN BED. HR 60'S. SBP 117. SPO2 100% ON 2L VIA NC. NO APPARENT SOB. HEPARIN GTT INFUSING PER ORDERS. PODIATRY TO BEDSIDE THIS AM. PT RESPONDING TO VERBAL STIMULI DURING LEFT FOOT PODIATRY ASSESSMENT. CBG THIS AM 68. PUDDING AND BREAKFAST GIVEN. REPEAT CBG 136. CALL LIGHT WITHIN REACH. NO FURTHER NEEDS AT THIS TIME.
[2023-02-23] MEDS ORDERED: MIRT15 PO (10:34)
[2023-02-23 11:41] VITALS: BP 134/63
--- NOTE | 2023-02-23 11:46 | NUR ---
PT UPDATE: DR. MARINA TO BEDSIDE THIS AM. PT WITH O2 SATS 100% ON 2L VIA NC. OXYGEN TITRATED DOWN TO ROOM AIR. 10-15 MINUTES AFTER TITRATION PT SATS DECREASED TO 80'S ON RA. NOTICEABLE SOB AT REST. 2L OF O2 REAPPLIED VIA NC. O2 SATS INCREASED TO >95% AT REST. SOB VISIBLY IMPROVED. NO FURTHER NEEDS AT THIS TIME.
[2023-02-23 16:27] VITALS: BP 114/59
[2023-02-23] MEDS ORDERED: CLOP75 PO (16:31)
[2023-02-23] MEDS ORDERED: ASPI81CH PO (16:31)
== END 2023-02-23 17:00 | disposition home or self-care (01) | DRG 252 ==
LOC: ER 04:35 → PCU 11:07
PROVIDERS: Emergency Medicine; Internal Medicine Nephrology; Student in an Organized Health Care Education/Training Program; ADMIT Family Medicine
PROC: 04FK3ZZ Fragmentation of Right Femoral Artery, Percutaneous Approach (ICD-10-PCS; principal; 2023-02-21)
PROC: 04FM3ZZ Fragmentation of Right Popliteal Artery, Percutaneous Approach (ICD-10-PCS; 2023-02-21)
PROC: B44HZZZ Ultrasonography of Bilateral Lower Extremity Arteries (ICD-10-PCS; 2023-02-21)
PROC: B41G1ZZ Fluoroscopy of Left Lower Extremity Arteries using Low Osmolar Contrast (ICD-10-PCS; 2023-02-21)
PROC: B41C1ZZ Fluoroscopy of Pelvic Arteries using Low Osmolar Contrast (ICD-10-PCS; 2023-02-21)
PROC: B41F1ZZ Fluoroscopy of Right Lower Extremity Arteries using Low Osmolar Contrast (ICD-10-PCS; 2023-02-21)
PROC: 5A1D70Z Performance of Urinary Filtration, Intermittent, Less than 6 Hours Per Day (ICD-10-PCS; 2023-02-22)
DX: I70.221 Atherosclerosis of native arteries of extremities with rest pain, right leg (principal); N18.6 End stage renal disease; E87.1 Hypo-osmolality and hyponatremia; J96.11 Chronic respiratory failure with hypoxia; I13.2 Hypertensive heart and chronic kidney disease with heart failure and with stage 5 chronic kidney disease, or end stage renal disease; I50.32 Chronic diastolic (congestive) heart failure; L03.115 Cellulitis of right lower limb; E87.5 Hyperkalemia; E11.22 Type 2 diabetes mellitus with diabetic chronic kidney disease; F32.A Depression, unspecified; E11.51 Type 2 diabetes mellitus with diabetic peripheral angiopathy without gangrene; F41.9 Anxiety disorder, unspecified; E03.9 Hypothyroidism, unspecified; I95.9 Hypotension, unspecified; D63.1 Anemia in chronic kidney disease; E11.42 Type 2 diabetes mellitus with diabetic polyneuropathy; E11.319 Type 2 diabetes mellitus with unspecified diabetic retinopathy without macular edema; I25.10 Atherosclerotic heart disease of native coronary artery without angina pectoris; Z99.2 Dependence on renal dialysis; Z99.81 Dependence on supplemental oxygen; Z88.2 Allergy status to sulfonamides; Z91.158 Patient's noncompliance with renal dialysis for other reason; Z90.49 Acquired absence of other specified parts of digestive tract; Z98.890 Other specified postprocedural states; Z79.899 Other long term (current) drug therapy; Z79.4 Long term (current) use of insulin
CPT/HCPCS: 36415; 73620; 73706; 75625; 75716; 75774; 76937; 80053; 80069; 82947; 83605; 83735; 84132; 85014; 85018; 85025; 85049; 85347; 85520; 85610; 85730; 93926; 94760; 96374-59; 96375-59; 96376-59; 97162; 97530; 99152; 99153; 99285-25; A9270; C1725; C1760; C1769; C1887; C1894; C9764; J0696; J1644; J2250; J2405; J3010; J7030; J7050; P9046; Q5106; Q9967